=== PATIENT | male | born 1940 | race Caucasian/White ===

== ENCOUNTER 2016-02-24 09:41 | Inpatient (IN) | payer MEDICARE ==
[2016-02-24] VITALS (9 sets, daily range): BP systolic 124–230; BP diastolic 74–155; PULSE 77–101; RESP 15–21; TEMP 98.1; O2SAT 80–99
[~2016-02-24] VITALS: Ht 188 cm; Wt 111.9 kg
--- NOTE | 2016-02-24 09:54 | PD ---
HPI Chief Complaint: extremity injury Time Seen by Provider: 09:48 Travel History International Travel<30 days: No Contact w/Intl Traveler<30days: No Traveled to known affect area: No History of Present Illness HPI 75-year-old male was brought in by EMS for left leg injury. Patient resides at local assisted-living facility. Patient tripped and fell this morning. Patient denies loss of consciousness. Patient denies any headache or neck pain. Patient complains of mild pain on the left low leg. Patient denies any chest pain or shortness of breath. Patient denies abdominal pain. Patient denies any other injury. Patient has history hypertension. Patient has hearing impairment problem. PFSH Social History Tobacco Use: No Allergies-Medications (Allergen,Severity, Reaction): Coded Allergies: No Known Allergies (Unverified , 02/24/16) Reported Meds & Prescriptions Reported Meds & Active Scripts Active Percocet (Oxycodone-Acetaminophen) 5-325 mg Tab 1 Tab PO Q4H PRN Reported K-Tab (Potassium Chloride) 10 Meq Tab 8 Meq PO DAILY Citalopram (Citalopram Hydrobromide) 10 Mg Tab 20 Mg PO DAILY Review of Systems General / Constitutional: No: Fever Eyes: No: Visual changes HENT: No: Headaches Cardiovascular: No: Chest Pain or Discomfort Respiratory: No: Shortness of Breath Gastrointestinal: No: Abdominal Pain Genitourinary: No: Dysuria Musculoskeletal: Positive: Pain Skin: No Rash Neurologic: No: Weakness Psychiatric: No: Depression Endocrine: No: Polydipsia Hematologic/Lymphatic: No: Easy Bruising Physical Exam Narrative GENERAL: Well-nourished, well-developed patient. SKIN: Warm and dry. HEAD: Normocephalic. EYES: No scleral icterus. No injection or drainage. NECK: Supple, trachea midline. No JVD or lymphadenopathy. CARDIOVASCULAR: Regular rate and rhythm without murmurs, gallops, or rubs. RESPIRATORY: Breath sounds equal bilaterally. No accessory muscle use. GASTROINTESTINAL: Abdomen soft, non-tender, nondistended. MUSCULOSKELETAL: No cyanosis, or edema. BACK: Nontender without obvious deformity. No CVA tenderness. Patient has 1.5 cm laceration pretibial area left low leg minor bleeding noted. Soft tissue swelling noted left low leg. Sensory motor function distally intact. Good DP pulse. Data Data Last Documented VS Vital Signs Date Time Temp Pulse Resp B/P Pulse Ox O2 Delivery O2 Flow Rate FiO2 02/24/16 11:00 88 17 196/108 96 Room Air 02/24/16 09:52 98.1 Orders Electrocardiogram (02/24/16 09:49) Complete Blood Count With Diff (02/24/16 09:49) Comprehensive Metabolic Panel (02/24/16 09:49) Prothrombin Time / Inr (Pt) (02/24/16 09:49) Act Partial Throm Time (Ptt) (02/24/16 09:49) Chest, Single Ap (02/24/16 09:49) Iv Access Insert/Monitor (02/24/16 09:49) Ecg Monitoring (02/24/16 09:49) Oximetry (02/24/16 09:49) Type And Screen (02/24/16 09:49) Tibia/Fibula (Ap/Lat) (02/24/16 09:49) Sodium Chlor 0.9% 1000 Ml Inj (Ns 1000 M (02/24/16 10:00) Tetanus/Diphtheria Tox Adult (Tetanus/Di (02/24/16 10:00) Hydralazine Inj (Apresoline Inj) (02/24/16 10:00) Ct Tib/Fib W/O Iv Contrast (02/24/16 ) Ct Ankle W/O Contrast (02/24/16 ) Cefazolin 2 Gm Premix (Ancef 2 Gm Premix (02/24/16 11:30) Splint Or Brace Apply/Monitor (02/24/16 11:30) Nifedipine Sr (Procardia Xl) (02/24/16 11:45) Admit Order (Ed Use Only) (02/24/16 11:35) Labs Laboratory Tests Test 02/24/16 10:00 White Blood Count 13.2 TH/MM3 Red Blood Count 5.26 MIL/MM3 Hemoglobin 15.5 GM/DL Hematocrit 45.2 % Mean Corpuscular Volume 85.9 FL Mean Corpuscular Hemoglobin 29.5 PG Mean Corpuscular Hemoglobin 34.3 % Concent Red Cell Distribution Width 13.5 % Platelet Count 212 TH/MM3 Mean Platelet Volume 9.2 FL Neutrophils (%) (Auto) 84.0 % Lymphocytes (%) (Auto) 9.2 % Monocytes (%) (Auto) 4.6 % Eosinophils (%) (Auto) 1.6 % Basophils (%) (Auto) 0.6 % Neutrophils # (Auto) 11.1 TH/MM3 Lymphocytes # (Auto) 1.2 TH/MM3 Monocytes # (Auto) 0.6 TH/MM3 Eosinophils # (Auto) 0.2 TH/MM3 Basophils # (Auto) 0.1 TH/MM3 CBC Comment DIFF FINAL Differential Comment Prothrombin Time 10.5 SEC Prothromb Time International 1.0 RATIO Ratio Activated Partial 29.7 SEC Thromboplast Time Sodium Level 140 MEQ/L Potassium Level 3.5 MEQ/L Chloride Level 104 MEQ/L Carbon Dioxide Level 26.5 MEQ/L Anion Gap 10 MEQ/L Blood Urea Nitrogen 13 MG/DL Creatinine 1.14 MG/DL Estimat Glomerular Filtration 63 ML/MIN Rate Random Glucose 104 MG/DL Calcium Level 8.5 MG/DL Total Bilirubin 0.5 MG/DL Aspartate Amino Transf 21 U/L (AST/SGOT) Alanine Aminotransferase 23 U/L (ALT/SGPT) Alkaline Phosphatase 69 U/L Total Protein 8.1 GM/DL Albumin 3.5 GM/DL Blood Type O NEGATIVE Antibody Screen NEGATIVE Blood Bank Comment [facility] Medical Decision Making Medical Screen Exam Complete: Yes Emergency Medical Condition: Yes Differential Diagnosis Differential diagnosis including laceration, contusion, fracture, open fracture. Narrative Course 75 years old male with left low leg injury, laceration, soft tissue swelling. Patient has history hypertension. Patient's hypertensive this morning. Hydralazine 10 mg IV given. Betadine and dressing. Posterior long-leg splint. Ancef 2 g IV. I spoke with Dr. Chappell, orthopedist production laborer. Advised CT scan of the left tib-fib and ankle. Medical service to control blood pressure. Diagnosis Primary Impression: Fracture of tibia with fibula, left, open Qualified Code: S82.402B - Fracture of tibia with fibula, left, open, type I or II, initial encounter Additional Impression: Uncontrolled hypertension Admitting Information Admitting Physician Requests: Admit Scripts Lisinopril-Hctz 20-12.5 Mg Tab1 Tab PO DAILY #30 TAB Ref 0 Prov:Ofelia Patiño 02/25/16 Oxycodone-Acetaminophen (Percocet)5-325 mg Tab1 Tab PO Q4H PRN (PAIN) #90 TAB Ref 0 Prov:Kevin Chappell Jr., MD 02/24/16 Ralph Urena MD Feb 24, 2016 09:53
[2016-02-24] MEDS ORDERED: hydrALAZINE HCL 20 MG/ML VIAL IV PUSH ONE (10:00)
[2016-02-24] MEDS ORDERED: TETANUS/DIPHTHERIA TOXOID ADULT 0.5 ML VIAL IM ONE (10:00)
[2016-02-24] MEDS ORDERED: LISI10TA PO (10:06)
[2016-02-24] MEDS ORDERED: CITA10TA4 PO (10:06)
[2016-02-24] MEDS ORDERED: K-TA10TA PO (10:06)
[2016-02-24] MEDS: SODIUM CHLOR 0.9% 1000 ML INJ 1,000 ML IV SCH ×2 (10:08→20:00)
[2016-02-24 10:17] LABS: AUTOMATED NEUTROPHIL # 11.1 TH/MM3 (1.8-7.7); BASOPHIL # 0.1 TH/MM3 (0-0.2); BASOPHIL % 0.6 % (0.0-2.0); EOSINOPHIL # 0.2 TH/MM3 (0-0.4); EOSINOPHIL % 1.6 % (0.0-4.0); HEMATOCRIT 45.2 % (39.0-51.0); HEMO FLAGS DIFF FINAL; LYMPH % 9.2 % (9.0-44.0); LYMPHOCYTE # 1.2 TH/MM3 (1.0-4.8); MEAN CELL VOLUME 85.9 FL (80.0-100.0); MEAN CORPUSCULAR HEMOGLOBIN 29.5 PG (27.0-34.0); MEAN CORPUSCULAR HGB CONC 34.3 % (32.0-36.0); MONO % 4.6 % (0.0-8.0); PLATELET COUNT 212 TH/MM3 (150-450); RED BLOOD COUNT 5.26 MIL/MM3 (4.50-5.90); RED CELL DISTRIBUTION WIDTH 13.5 % (11.6-17.2); WHITE BLOOD COUNT 13.2 TH/MM3 (4.0-11.0)
[2016-02-24 10:28] LABS: APTT (PATIENT) 29.7 SEC (24.3-30.1); PROTHROMBIN TIME - PATIENT 10.5 SEC (9.8-11.6)
[2016-02-24 10:32] LABS: ANION GAP 10 MEQ/L (5-15); AST (GOT) 21 U/L (15-37); BICARBONATE 26.5 MEQ/L (21.0-32.0); BLOOD UREA NITROGEN 13 MG/DL (7-18); CHLORIDE 104 MEQ/L (98-107); GLOMERULAR FILTRATION RATE 63 ML/MIN (>89); POTASSIUM 3.5 MEQ/L (3.5-5.1); SODIUM (NA) 140 MEQ/L (136-145)
[2016-02-24 10:35] LABS: ALKALINE PHOSPHATASE 69 U/L (45-117); ALT (GPT) 23 U/L (12-78); TOTAL BILIRUBIN ADULT 0.5 MG/DL (0.2-1.0)
--- NOTE | 2016-02-24 10:39 | RADRPT ---
EXAM DATE/TIME: 02/24/2016 10:05 [facility] COMPARISON: No previous studies available for comparison. INDICATIONS : Short of breath. MEDICAL HISTORY : None. SURGICAL HISTORY : None. ENCOUNTER: Initial ACUITY: 1 day PAIN SCORE: 02/15 LOCATION: Bilateral chest FINDINGS: A single view of the chest demonstrates the lungs to be symmetrically aerated without evidence of mas s, infiltrate or effusion. There is hyperaeration of both lung greene. The cardiomediastinal contour s are unremarkable. Osseous structures are intact. There are degenerative changes of the thoracic sp ine. CONCLUSION: No acute intrathoracic disease. Abhijeet Ramsey MD on February 24, 2016 at 10:37 Board Certified Radiologist. This report was verified electronically.
--- NOTE | 2016-02-24 10:42 | RADRPT ---
EXAM DATE/TIME: 02/24/2016 10:10 [facility] COMPARISON: No previous studies available for comparison. INDICATIONS : Left lower leg pain. MEDICAL HISTORY : None. SURGICAL HISTORY : None. ENCOUNTER: Initial ACUITY: 1 day PAIN SCORE: 10/10 LOCATION: Left lower leg. FINDINGS: There are spiral mildly displaced fractures involving the midshaft of the fibula and the distal shaft of the tibia. There is also a spiral nondisplaced fracture involving the distal fibula as well as a nondisplaced fracture involving the medial malleolus. There is diffuse soft tissue swelling. No joint dislocation is seen at the knee or ankle. CONCLUSION: 1. Spiral fractures involving the midshaft of the fibula as well as the distal fibula at the lateral malleolus level. 2. Spiral fracture involving the distal shaft of the tibia and nondisplaced fracture of medial malleo holden. Abhijeet Ramsey MD on February 24, 2016 at 10:38 Board Certified Radiologist. This report was verified electronically.
[2016-02-24] MEDS ORDERED: ceFAZolin 2 GM PREMIX 50 ML IV ONE (11:30)
[2016-02-24] MEDS ORDERED: PROPOFOL 200 MG/20 ML AMP IV ONE (11:31)
[2016-02-24] MEDS ORDERED: ONDANSETRON HCL 4 MG/2 ML VIAL IV PUSH ONE ×2 (11:31→11:45)
[2016-02-24] MEDS ORDERED: LACTATED RINGER'S 1000 ML INJ 1,000 ML IV ONE (11:31)
[2016-02-24] MEDS: NIFEdipine 60 MG SUSTAINED RELEASE TAB PO SCH (11:45)
[2016-02-24] MEDS ORDERED: SODIUM CHLORIDE 0.9% FLUSH 5 ML FLUSH FLUSH PRN (11:45)
[2016-02-24] MEDS ORDERED: MORPHINE SULFATE 4 MG/ML INJ IV PUSH ONE (11:45)
[2016-02-24] MEDS ORDERED: HYDROmorphone HCL PF 1 MG/ML VIAL IV PUSH PRN (11:45)
[2016-02-24] MEDS ORDERED: ACETAMINOPHEN/HYDROcodone 325 MG/5 MG TAB PO PRN (11:45)
[2016-02-24] MEDS ORDERED: ONDANSETRON HCL 4 MG/2 ML VIAL IVP PRN (11:45)
[2016-02-24] MEDS ORDERED: NALOXONE HCL 0.4 MG/ML AMP IV PRN (11:45)
[2016-02-24] MEDS ORDERED: ACETAMINOPHEN 325 MG TAB PO PRN (11:45)
--- NOTE | 2016-02-24 13:55 | RADRPT ---
EXAM DATE/TIME: 02/24/2016 13:18 [facility] COMPARISON: No previous studies available for comparison. INDICATIONS: Fall, fracture. RADIATION DOSE: 28.08 CTDIvol (mGy) MEDICAL HISTORY: Cardiovascular disease. Hypertension. SURGICAL HISTORY: None. ENCOUNTER: Initial ACUITY: 1 day PAIN SCALE: 4/10 LOCATION: Left leg TECHNIQUE: Volumetric scanning of the tibia and fibula was performed. Using automated exposure control and adju stment of the mA and/or kV according to patient size, radiation dose was kept as low as reasonably ac hievable to obtain optimal diagnostic quality images. FINDINGS: There is a fracture to the mid shaft of the fibula and tibia. Additional areas of fracture of both t he medial and lateral malleolus. Tibial plateau is in anatomic alignment. CONCLUSION: Fractures as described above. This does not extend to the tibial plateau. Fractures do involve the tibial plafond. Nicholas Wynn MD FACR on February 24, 2016 at 13:43 Board Certified Radiologist. This report was verified electronically.
--- NOTE | 2016-02-24 13:57 | RADRPT ---
EXAM DATE/TIME: 02/24/2016 13:18 [facility] COMPARISON: No previous studies available for comparison. INDICATIONS: Fall, fracture. RADIATION DOSE: CTDIvol (mGy) ; Reconstructed from previous dataset MEDICAL HISTORY: Cardiovascular disease. Hypertension. SURGICAL HISTORY: None. ENCOUNTER: Initial ACUITY: 1 day PAIN SCALE: 4/10 LOCATION: Left leg TECHNIQUE: Volumetric scanning of the ankle was performed. Using automated exposure control and adjustment of t he mA and/or kV according to patient size, radiation dose was kept as low as reasonably achievable to obtain optimal diagnostic quality images. FINDINGS: There is a fracture of the medial and lateral malleolus. The talus and calcaneus are intact. Fractu re of the fibula include a vertical fracture of the posterior lip. CONCLUSION: 1. Trimalleolar fracture as described above. 2. Talus and calcaneus are intact. Nicholas Wynn MD FACR on February 24, 2016 at 13:44 Board Certified Radiologist. This report was verified electronically.
[2016-02-24] MEDS ORDERED: GENTAMICIN SULFATE 80 MG/2 ML VIAL ONE ×2 (16:27→16:30)
[2016-02-24] MEDS ORDERED: VANCOMYCIN HCL 1000 MG VIAL ONE (17:12)
[2016-02-24] MEDS ORDERED: SODIUM CHLOR 0.9% 250 ML INJ 250 ML ONE (17:13)
--- NOTE | 2016-02-24 18:16 | HHI.HP ---
HPI Service [facility] Primary Care Physician Non-Staff Admission Diagnosis open fracture left tib-fib. Uncontrolled hypertension. Chief Complaint: fall with fracture left tib-fib Travel History International Travel<30 Days: No Contact w/Intl Traveler <30 Da: No Traveled to Known Affected Are: No History of Present Illness 75 y/o male who tripped and fell today with left leg pain with history of hypertension going to or from er and not able at this time to give further history. Patient blood pressure was high given hydralazine with improvement. Review of Systems Musculoskeletal: COMPLAINS OF: Joint pain Past Family Social History Past Medical History hypertension Past Surgical History unknown Reported Medications lisinopril/hctz 10-12.5,citalopram,potassium Allergies: Coded Allergies: No Known Allergies (Unverified , 02/24/16) Social History NS,ND Physical Exam Vital Signs Vital Signs Date Time Temp Pulse Resp B/P Pulse Ox O2 Delivery O2 Flow Rate FiO2 02/24/16 15:00 100 20 124/74 93 Room Air 02/24/16 14:45 20 02/24/16 14:41 101 21 138/88 95 Room Air 02/24/16 13:00 100 17 176/81 94 Room Air 02/24/16 12:00 92 15 194/109 95 Room Air 02/24/16 11:00 88 17 196/108 96 Room Air 02/24/16 10:33 88 20 193/105 98 Room Air 02/24/16 09:55 79 17 230/122 80 Room Air 02/24/16 09:55 97 Room Air 02/24/16 09:52 97 Room Air 02/24/16 09:52 98.1 77 17 213/155 97 Physical Exam GENERAL: This is a well-nourished, well-developed patient, in no apparent distress. SKIN: No rashes, ecchymoses or lesions. Cool and dry. HEAD: Atraumatic. Normocephalic. No temporal or scalp tenderness. EYES: Pupils equal round and reactive. Extraocular motions intact. No scleral icterus. No injection or drainage. ENT: Nose without bleeding, purulent drainage or septal hematoma. Throat without erythema, tonsillar hypertrophy or exudate. Uvula midline. Airway patent. NECK: Trachea midline. No JVD or lymphadenopathy. Supple, nontender, no meningeal signs. CARDIOVASCULAR: Regular rate and rhythm without murmurs, gallops, or rubs. RESPIRATORY: Clear to auscultation. Breath sounds equal bilaterally. No wheezes , rales, or rhonchi. GASTROINTESTINAL: Abdomen soft, non-tender, nondistended. No hepato-splenomegaly , or palpable masses. No guarding. MUSCULOSKELETAL: Extremities with left leg pain on movement NEUROLOGICAL: Awake and alert. Cranial nerves II through XII intact. Motor and sensory grossly within normal limits. Five out of 5 muscle strength in all muscle groups. Normal speech. Laboratory Laboratory Tests Test 02/24/16 10:00 White Blood Count 13.2 Red Blood Count 5.26 Hemoglobin 15.5 Hematocrit 45.2 Mean Corpuscular Volume 85.9 Mean Corpuscular Hemoglobin 29.5 Mean Corpuscular Hemoglobin 34.3 Concent Red Cell Distribution Width 13.5 Platelet Count 212 Mean Platelet Volume 9.2 Neutrophils (%) (Auto) 84.0 Lymphocytes (%) (Auto) 9.2 Monocytes (%) (Auto) 4.6 Eosinophils (%) (Auto) 1.6 Basophils (%) (Auto) 0.6 Neutrophils # (Auto) 11.1 Lymphocytes # (Auto) 1.2 Monocytes # (Auto) 0.6 Eosinophils # (Auto) 0.2 Basophils # (Auto) 0.1 CBC Comment DIFF FINAL Differential Comment Prothrombin Time 10.5 Prothromb Time International 1.0 Ratio Activated Partial 29.7 Thromboplast Time Sodium Level 140 Potassium Level 3.5 Chloride Level 104 Carbon Dioxide Level 26.5 Anion Gap 10 Blood Urea Nitrogen 13 Creatinine 1.14 Estimat Glomerular Filtration 63 Rate Random Glucose 104 Calcium Level 8.5 Total Bilirubin 0.5 Aspartate Amino Transf 21 (AST/SGOT) Alanine Aminotransferase 23 (ALT/SGPT) Alkaline Phosphatase 69 Total Protein 8.1 Albumin 3.5 Blood Type O NEGATIVE Antibody Screen NEGATIVE Blood Bank Comment Result Diagram: 02/24/16 1000 02/24/16 1000 Imaging Last 24 hours Impressions Tibia/Fibula X-Ray 02/24/16 0949 Signed Impressions: Service Date/Time: Wednesday, February 24, 2016 10:10 - CONCLUSION: 1. Spiral fractures involving the midshaft of the fibula as well as the distal fibula at the lateral malleolus level. 2. Spiral fracture involving the distal shaft of the tibia and nondisplaced fracture of medial malleolus. Abhijeet J. Siragusa, MD Chest X-Ray 02/24/16 0949 Signed Impressions: Service Date/Time: Wednesday, February 24, 2016 10:05 - CONCLUSION: No acute intrathoracic disease. Abhijeet Ramsey MD Lower Extremity CT 02/24/16 0000 Signed Impressions: Service Date/Time: Wednesday, February 24, 2016 13:18 - CONCLUSION: 1. Trimalleolar fracture as described above. 2. Talus and calcaneus are intact. Nicholas Wynn MD FACR Lower Extremity CT 02/24/16 0000 Signed Impressions: Service Date/Time: Wednesday, February 24, 2016 13:18 - CONCLUSION: Fractures as described above. This does not extend to the tibial plateau. Fractures do involve the tibial plafond. Nicholas Wynn MD FACR Course in er given pain med and iv antibiotic and blood pressure med and sent to or Assessment and Plan Problem List: (1) Fracture of tibia with fibula, left, open Status: Acute Plan: patient to or (2) Uncontrolled hypertension Status: Acute Plan: patient can restart in am regular meds will use vasotec 1.25 q 6h IV for prn blood pressure elevation Assessment and Plan further plan as case develops Code Status full Discussed Condition With patient Physician Certification 2 Midnight Certification Type: Admission for Inpatient Services Order for Inpatient Services The services are ordered in accordance with Medicare regulations or non- Medicare payer requirements, as applicable. In the case of services not specified as inpatient-only, they are appropriately provided as inpatient services in accordance with the 2-midnight benchmark. Estimated LOS (days): 3 3 days is the estimated time the patient will need to remain in the hospital, assuming treatment plan goals are met and no additional complications. Post-Hospital Plan: SNF Problem Qualifiers (1) Fracture of tibia with fibula, left, open: Qualified Code: S82.402B - Fracture of tibia with fibula, left, open, type I or II, initial encounter Aguilar Kulkarni MD Feb 24, 2016 18:16
--- NOTE | 2016-02-24 19:34 | EKG ---
Date Performed: 02/24/2016 Time Performed: 10:05:46 PTAGE: 75 years EKG: Sinus rhythm WITH OCCASIONAL SUPRAVENTRICULAR PREMATURE COMPLEXES NONSPECIFIC T-WAVE ABNORMALITY BORDERLINE ECG NO PREVIOUS TRACING DOCTOR: Sunny Walker Interpretating Date/Time 02/24/2016 19:33:55
--- NOTE | 2016-02-24 19:42 | PD.CONS ---
cc: Kevin Chappell Jr., MD HPI Service [facility] Consult Requested By Primary Care Physician Non-Staff Admission Diagnosis open fracture left tib-fib. Uncontrolled hypertension. Diagnoses: (1) Fracture of tibia with fibula, left, open (2) Uncontrolled hypertension History of Present Illness 75-year-old male was brought in by EMS after a fall at his assisted-living facility. Patient denies loss of consciousness. Patient denies any headache or neck pain. Patient complains of mild pain on the left low leg. Patient denies any chest pain or shortness of breath. Patient denies abdominal pain. Patient denies any other injury. Patient has history hypertension. Patient has hearing impairment problem. Patient is extremely hard of hearing and is a poor historian. He reports mild paresthesia in the LEFT lower extremity, his pain is 4 out of 10, exacerbated by range of motion, relieved at rest and IV pain medicine, pain localized in the distal tibia area. Review of Systems Constitutional: DENIES: Diaphoretic episodes, Fatigue, Fever, Weight gain, Weight loss, Chills, Dizziness, Change in appetite, Night Sweats Endocrine: DENIES: Heat/cold intolerance, Polydipsia, Polyuria, Polyphagia Respiratory: DENIES: Apneas, Cough, Snoring, Wheezing, Hemoptysis, Sputum production, Shortness of breath Gastrointestinal: DENIES: Abdominal pain, Black stools, Bloody stools, Constipation, Diarrhea, Nausea, Vomiting, Difficulty Swallowing, Anorexia Genitourinary: DENIES: Sexual dysfunction, Urinary frequency, Urinary incontinence, Urgency, Hematuria, Dysuria, Nocturia, Penile Discharge, Testicular Pain, Testicular Swelling Integumentary: DENIES: Abnormal pigmentation, Nail changes, Pruritus, Rash Past Family Social History Past Medical History unobtainable Past Surgical History unobtainable Allergies: Coded Allergies: No Known Allergies (Unverified , 02/24/16) Active Ordered Medications Current Medications Medications (Trade) Dose Ordered Sig/Luis Route Start Time Stop Time Status Last Admin (NS 1000 ml Inj) 1,000 ml @ 100 mls/hr Q10H IV 02/24/16 10:00 02/24/16 10:08 (Procardia Xl) 60 mg DAILY PO 02/24/16 11:45 (NS Flush) 2 ml UNSCH PRN FLUSH 02/24/16 11:45 (NS Flush) 2 ml BID FLUSH 02/24/16 21:00 (Tylenol) 650 mg Q4H PRN PO 02/24/16 11:45 (Zofran Inj) 4 mg Q6H PRN IVP 02/24/16 11:45 (Milk Of Magnesia Liq) 30 ml Q12H PRN PO 02/24/16 11:45 (Narcan Inj) 0.4 mg UNSCH PRN IV 02/24/16 11:45 ([place] 5-325 Mg) 1 tab Q4H PRN PO 02/24/16 11:45 (Dilaudid Pf Inj) 1 mg Q4H PRN IV PUSH 02/24/16 11:45 Reported Meds & Active Scripts Active Reported K-Tab (Potassium Chloride) 10 Meq Tab Unknown Dose PO DAILY Lisinopril-Hctz 10-12.5 Mg Tab Unknown Dose PO DAILY Citalopram (Citalopram Hydrobromide) 10 Mg Tab Unknown Dose PO DAILY Family History noncontributory Social History denies alcohol and tobacco use. Physical Exam Vital Signs Vital Signs Date Time Temp Pulse Resp B/P Pulse Ox O2 Delivery O2 Flow Rate FiO2 02/24/16 15:00 100 20 124/74 93 Room Air 02/24/16 14:45 20 02/24/16 14:41 101 21 138/88 95 Room Air 02/24/16 13:00 100 17 176/81 94 Room Air 02/24/16 12:00 92 15 194/109 95 Room Air 02/24/16 11:00 88 17 196/108 96 Room Air 02/24/16 10:33 88 20 193/105 98 Room Air 02/24/16 09:55 79 17 230/122 80 Room Air 02/24/16 09:55 97 Room Air 02/24/16 09:52 97 Room Air 02/24/16 09:52 98.1 77 17 213/155 97 Physical Exam alert and awake and oriented. 3. No acute distress. Head and neck :Normocephalic atraumatic. Pulmonary. No respiratory efforts. abdomen. Soft. Bilateral upper extremity. Neurovascular intact. No deformities. Strong radial artery pulses. LEFT lower extremity in splint with obvious deformity. Serosanguineous drainage anterior aspect of the splint. Otherwise his splint is intact. Soft compartments. Toes warm and well perfused. able to wiggle his toes. Soft components. Negative Homans. Laboratory Laboratory Tests Test 02/24/16 10:00 White Blood Count 13.2 Red Blood Count 5.26 Hemoglobin 15.5 Hematocrit 45.2 Mean Corpuscular Volume 85.9 Mean Corpuscular Hemoglobin 29.5 Mean Corpuscular Hemoglobin 34.3 Concent Red Cell Distribution Width 13.5 Platelet Count 212 Mean Platelet Volume 9.2 Neutrophils (%) (Auto) 84.0 Lymphocytes (%) (Auto) 9.2 Monocytes (%) (Auto) 4.6 Eosinophils (%) (Auto) 1.6 Basophils (%) (Auto) 0.6 Neutrophils # (Auto) 11.1 Lymphocytes # (Auto) 1.2 Monocytes # (Auto) 0.6 Eosinophils # (Auto) 0.2 Basophils # (Auto) 0.1 CBC Comment DIFF FINAL Differential Comment Prothrombin Time 10.5 Prothromb Time International 1.0 Ratio Activated Partial 29.7 Thromboplast Time Sodium Level 140 Potassium Level 3.5 Chloride Level 104 Carbon Dioxide Level 26.5 Anion Gap 10 Blood Urea Nitrogen 13 Creatinine 1.14 Estimat Glomerular Filtration 63 Rate Random Glucose 104 Calcium Level 8.5 Total Bilirubin 0.5 Aspartate Amino Transf 21 (AST/SGOT) Alanine Aminotransferase 23 (ALT/SGPT) Alkaline Phosphatase 69 Total Protein 8.1 Albumin 3.5 Blood Type O NEGATIVE Antibody Screen NEGATIVE Blood Bank Comment Result Diagram: 02/24/16 1000 02/24/16 1000 Imaging Last 72 hours Impressions Tibia/Fibula X-Ray 02/24/16 0949 Signed Impressions: Service Date/Time: Wednesday, February 24, 2016 10:10 - CONCLUSION: 1. Spiral fractures involving the midshaft of the fibula as well as the distal fibula at the lateral malleolus level. 2. Spiral fracture involving the distal shaft of the tibia and nondisplaced fracture of medial malleolus. Abhijeet Ramsey MD Chest X-Ray 02/24/16 0921 Signed Impressions: Service Date/Time: Wednesday, February 24, 2016 10:05 - CONCLUSION: No acute intrathoracic disease. Abhijeet Ramsey MD Assessment & Plan Assessment and Plan 75-year-old status post ground-level fall with a left open tibia and fibula fracture as well as a displaced fracture of the posterior malleolus. I recommend irrigation debridement with possible intramedullary casandra fixation in addition to open reduction internal fixation of the left posterior malleolus. I discussed my treatment plans with the patient, as well as risks, benefits and alternatives of surgical Intervention versus nonoperative treatment. In this case, the risks of operative intervention involves bleeding, infection, risks of damage to neurovascular structures, the risk of needing further surgery, posttraumatic arthritis and the risks involved with complication from anesthesia. We will proceed with the above procedure. The patient accepts these risks; understands and agrees with my recommendations. I also discussed my proposed postoperative care and follow-up plan. All questions were answered. Plan for OR []. Nothing by mouth []. Patient consented. Thanks for the consult, thanks for allowing me to participate in this patient's medical care. Kevin Chappell Jr., MD Feb 24, 2016 19:42
[2016-02-24] MEDS ORDERED: PERC5TAB12 PO (19:51)
--- NOTE | 2016-02-24 19:51 | PD.OP ---
cc: Kevin Chappell Jr., MD Operative Report Date of Surgery: Feb 24, 2016 Preoperative Diagnosis: #1 left grade 1 open tibia fracture #2 left displaced posterior malleolus fracture Postoperative Diagnosis: Same Procedure: #1 open reduction internal fixation left posterior malleolus. #2 irrigation debridement left tibia #3 intramedullary casandra fixation left tibial shaft Anesthesia: Gen. Surgeon: Kevin Chappell Signal Maintenance Technician(s): ZULLY Carpio The surgical procedure was assisted by my Advanced Registered Nurse Practitioner. My NUTRITION TECH presence was necessary throughout this case for the manipulation and positioning of the surgical extremity. My NUTRITION TECH was assisting me throughout the duration of this procedure. The skill set of an Advance Registered Nurse Practitioner was medically necessary to complete this procedure. During the surgical case, the certified surgical assistant was working at the back table and the Advance Registered Nurse Practitioner was directly assisting me. Resident Surgeon: None Operation and Findings: The patient received intravenous. After the appropriate anesthesia was administered, the patient was prepped and draped in the supine position in the usual sterile fashion. Skin assessment showed a small anterior tibial wound. There was moderate swelling noted to the leg. Compartments were soft. Attention was first turned to the anterior tibial wound. The wound was extended for irrigation and debridement to the extent of soft tissue degloving and periosteal stripping. Next, the posterior malleolus was fixed. Small anterior and posterior incision were made at the distal tibia. Dissection was taken down bluntly to bone. A large periArticular clamp was used to compress the articular surface. A 4.0 Cannulated screw was used to fix the posterior malleolus with 1 lag screw from anterior to posterior. We made incision proximal to the patella. We carefully dissected down to the quadriceps tendon. An in-line longitudinal split to the quadriceps tendon was completed. The capsule of the knee was entered. We placed the smooth trocar within the knee joint down to the proximal tibia, protecting the patella and trochlea during the case. We then reduced the tibia fracture manually under fluoroscopic imaging. A ball- tipped guidewire was placed into the tibial shaft, passing the fracture site. This was placed down to the distal physeal line of the tibia. We then sequentially reamed the tibia to 1 mm larger than the implanted tibial nail. We obtained good cortical chatter. We measured the appropriate length for the tibial nail. We then passed the tibial nail into the medullary canal of the tibia. The nail was secured proximally with 2 Screw(s), using the associated jig as a guide. We used the perfect [place] technique to visualize the distal tibial screws. The nail was secured distally with 2 screw(s). We had good reduction of the fracture with acceptable alignment in the AP and lateral planes and to rotation. We thoroughly irrigated the incisions including a lavage of the arthrotomy site proximally. The quadriceps split was closed with a #1 Vicryl. The remaining incisions were closed with #2-0 Vicryl, followed by yasmani. A well-padded splint was placed. IMPLANTS USED Synthes tibal nail, size: 9 mm * 360 mm POSTP-OP PLAN OF ACTIVITY Antibiotics: Ancef, vancomycin - 48hrs Antiocoagulation: Lovenox Weight bearing status: NWB for 3 months PT/OT: Making progress with PT. Encourage at least 3 times a day Dressing: Do not remove splint Dispo: expected discharge 2-3 days. Kevin Chappell Jr., MD Feb 24, 2016 19:50
[2016-02-24] MEDS ORDERED: ZOLPIDEM TARTRATE 5 MG TAB PO PRN (20:00)
[2016-02-24] MEDS ORDERED: Post-op Orders (for Pharmacy) MISC XX ONE (20:00)
[2016-02-24] MEDS ORDERED: SODIUM CHLORIDE 0.9% FLUSH 5 ML FLUSH IVF PRN (20:00)
[2016-02-24] MEDS ORDERED: PROMETHAZINE HCL 25 MG TAB PO PRN (20:00)
[2016-02-24] MEDS ORDERED: MORPHINE SULFATE 8 MG/ML INJ IV PUSH PRN (20:00)
[2016-02-24] MEDS ORDERED: oxyCODONE/ACETAMINOPHEN 5 MG/325 MG TAB PO PRN ×2 (20:00)
[2016-02-24] MEDS: KETOROLAC TROMETHAMINE 30 MG/ML (IVP) VIAL IVP SCH (20:00)
--- NOTE | 2016-02-24 20:07 | RADRPT ---
EXAM DATE/TIME: 02/24/2016 18:10 [place] COMPARISON: No previous studies available for comparison. INDICATIONS : Left tib/fib ORIF. MEDICAL HISTORY : None. SURGICAL HISTORY : None. ENCOUNTER: Subsequent ACUITY: 1 day PAIN SCORE: Non-responsive. LOCATION: Left Tib/Fib CONCLUSION: Fluoroscopic images during placement of intra-medullary casandra and screws in the left tibia. Segundo Vuong MD on February 24, 2016 at 20:05 Board Certified Radiologist. This report was verified electronically.
[2016-02-24] MEDS ORDERED: *RESP: ALBUTEROL 2.5 MG/3 ML NEB (PRN) PERIprocedural Use ONLY NEB ONE (20:45)
[2016-02-24] MEDS ORDERED: MORPHINE SULFATE 4 MG/ML INJ ONE (20:46)
[2016-02-24] MEDS ORDERED: fentaNYL CITRATE 250 MCG/5 ML AMP ONE (20:46)
[2016-02-24] MEDS ORDERED: MIDAZOLAM HCL 2 MG/2 ML VIAL ONE (20:47)
[2016-02-24] MEDS ORDERED: *MEPERIDINE 25 MG INJ VIAL PERIprocedural Use ONLY ONE (20:57)
[2016-02-24] MEDS: SODIUM CHLORIDE 0.9% FLUSH 5 ML FLUSH IVF SCH (21:00)
[2016-02-24] MEDS: SODIUM CHLORIDE 0.9% FLUSH 5 ML FLUSH FLUSH SCH (21:00)
[2016-02-25] MEDS: SODIUM CHLOR 0.9% 1000 ML INJ 1,000 ML IV SCH ×2 (00:19→16:00)
[2016-02-25 00:20] VITALS: BP 126/62; PULSE 95; RESP 18; TEMP 97.2; O2SAT 96
[2016-02-25] MEDS: KETOROLAC TROMETHAMINE 30 MG/ML (IVP) VIAL IVP SCH ×4 (01:41→20:54)
[2016-02-25 04:48] VITALS: BP 125/70; PULSE 89; RESP 18; TEMP 96.9; O2SAT 100
[2016-02-25 05:19] LABS: AUTOMATED NEUTROPHIL # 13.2 TH/MM3 (1.8-7.7); BASOPHIL % 0.1 % (0.0-2.0); HEMATOCRIT 36.5 % (39.0-51.0); HEMO FLAGS DIFF FINAL; LYMPH % 5.1 % (9.0-44.0); LYMPHOCYTE # 0.7 TH/MM3 (1.0-4.8); MEAN CELL VOLUME 85.7 FL (80.0-100.0); MEAN CORPUSCULAR HEMOGLOBIN 28.9 PG (27.0-34.0); MEAN CORPUSCULAR HGB CONC 33.8 % (32.0-36.0); MONO % 4.8 % (0.0-8.0); PLATELET COUNT 192 TH/MM3 (150-450); RED BLOOD COUNT 4.26 MIL/MM3 (4.50-5.90); RED CELL DISTRIBUTION WIDTH 13.7 % (11.6-17.2); WHITE BLOOD COUNT 14.6 TH/MM3 (4.0-11.0)
[2016-02-25 05:34] LABS: BICARBONATE 26.2 MEQ/L (21.0-32.0); MAGNESIUM 2.1 MG/DL (1.5-2.5)
[2016-02-25] MEDS: VANCOMYCIN INJ 1,000 MG in SODIUM CHLOR 0.9% 250 ML INJ 250 ML IV SCH ×2 (06:23→17:05)
[2016-02-25 08:00] VITALS: BP 117/65; PULSE 89; RESP 18; TEMP 98; O2SAT 93
[2016-02-25] MEDS: SODIUM CHLORIDE 0.9% FLUSH 5 ML FLUSH IVF SCH ×2 (09:00→21:00)
[2016-02-25] MEDS: SODIUM CHLORIDE 0.9% FLUSH 5 ML FLUSH FLUSH SCH ×2 (09:00→20:54)
[2016-02-25] MEDS: NIFEdipine 60 MG SUSTAINED RELEASE TAB PO SCH (09:07)
[2016-02-25] MEDS: ENOXAPARIN SODIUM 30 MG/0.3 ML SYRINGE SQ SCH ×2 (09:07→20:54)
[2016-02-25 12:00] VITALS: BP 123/69; PULSE 95; RESP 18; TEMP 97.6; O2SAT 93
[2016-02-25] MEDS ORDERED: CLON0.1T PO (15:25)
[2016-02-25] MEDS ORDERED: LISI20TA PO (15:25)
--- NOTE | 2016-02-25 15:26 | HHI.PR ---
Subjective Remarks No complaints Pts pain is well controlled BP is stable off all home meds Objective Vitals Vital Signs Date Time Temp Pulse Resp B/P Pulse Ox O2 Delivery O2 Flow Rate FiO2 02/25/16 12:00 97.6 95 18 123/69 93 02/25/16 08:00 98.0 89 18 117/65 93 02/25/16 04:48 96.9 89 18 125/70 100 02/25/16 00:20 97.2 95 18 126/62 96 02/24/16 22:16 97.7 93 14 131/72 95 Nasal Cannula 3 02/24/16 22:00 91 14 126/77 94 Nasal Cannula 3 02/24/16 21:45 92 16 125/77 96 Nasal Cannula 3 02/24/16 21:30 92 15 129/81 95 Nasal Cannula 3 02/24/16 21:15 90 17 131/76 94 Nasal Cannula 3 02/24/16 21:00 91 14 126/77 98 Aerosol Mask 10 02/24/16 20:45 92 16 125/77 90 Nasal Cannula 3 02/24/16 20:33 98.8 94 19 162/84 92 Nasal Cannula 3 02/24/16 02/24/16 02/25/16 15:00 23:00 07:00 Intake Total 1300 ml 400 ml Output Total 700 ml 150 ml Balance -700 ml 1150 ml 400 ml IV Total 100 ml 400 ml Other 1200 ml Output Urine Total 700 ml 0 ml Estimated Blood Loss 150 ml Other 0 ml # Voids 1 Result Diagram: 02/25/16 0437 02/25/16 0437 Other Results Laboratory Tests Test 02/24/16 02/25/16 10:00 04:37 White Blood Count 13.2 TH/MM3 14.6 TH/MM3 Red Blood Count 5.26 MIL/MM3 4.26 MIL/MM3 Hemoglobin 15.5 GM/DL 12.3 GM/DL Hematocrit 45.2 % 36.5 % Mean Corpuscular Volume 85.9 FL 85.7 FL Mean Corpuscular Hemoglobin 29.5 PG 28.9 PG Mean Corpuscular Hemoglobin 34.3 % 33.8 % Concent Red Cell Distribution Width 13.5 % 13.7 % Platelet Count 212 TH/MM3 192 TH/MM3 Mean Platelet Volume 9.2 FL 9.4 FL Neutrophils (%) (Auto) 84.0 % 90.0 % Lymphocytes (%) (Auto) 9.2 % 5.1 % Monocytes (%) (Auto) 4.6 % 4.8 % Eosinophils (%) (Auto) 1.6 % 0.0 % Basophils (%) (Auto) 0.6 % 0.1 % Neutrophils # (Auto) 11.1 TH/MM3 13.2 TH/MM3 Lymphocytes # (Auto) 1.2 TH/MM3 0.7 TH/MM3 Monocytes # (Auto) 0.6 TH/MM3 0.7 TH/MM3 Eosinophils # (Auto) 0.2 TH/MM3 0.0 TH/MM3 Basophils # (Auto) 0.1 TH/MM3 0.0 TH/MM3 CBC Comment DIFF FINAL DIFF FINAL Differential Comment Prothrombin Time 10.5 SEC Prothromb Time International 1.0 RATIO Ratio Activated Partial 29.7 SEC Thromboplast Time Sodium Level 140 MEQ/L 143 MEQ/L Potassium Level 3.5 MEQ/L 4.0 MEQ/L Chloride Level 104 MEQ/L 108 MEQ/L Carbon Dioxide Level 26.5 MEQ/L 26.2 MEQ/L Anion Gap 10 MEQ/L 9 MEQ/L Blood Urea Nitrogen 13 MG/DL 16 MG/DL Creatinine 1.14 MG/DL 1.40 MG/DL Estimat Glomerular Filtration 63 ML/MIN 49 ML/MIN Rate Random Glucose 104 MG/DL 145 MG/DL Calcium Level 8.5 MG/DL 8.1 MG/DL Total Bilirubin 0.5 MG/DL Aspartate Amino Transf 21 U/L (AST/SGOT) Alanine Aminotransferase 23 U/L (ALT/SGPT) Alkaline Phosphatase 69 U/L Total Protein 8.1 GM/DL Albumin 3.5 GM/DL Blood Type O NEGATIVE Antibody Screen NEGATIVE Blood Bank Comment Magnesium Level 2.1 MG/DL Imaging Last 24 hours Impressions Tibia/Fibula X-Ray 02/24/16948 Signed Impressions: Service Date/Time: Wednesday, February 24, 2016 10:10 - CONCLUSION: 1. Spiral fractures involving the midshaft of the fibula as well as the distal fibula at the lateral malleolus level. 2. Spiral fracture involving the distal shaft of the tibia and nondisplaced fracture of medial malleolus. Abhijeet Ramsey MD Chest X-Ray 02/24/1666 Signed Impressions: Service Date/Time: Wednesday, February 24, 2016 10:05 - CONCLUSION: No acute intrathoracic disease. Abhijeet Ramsey MD Lower Extremity CT 02/24/16 0000 Signed Impressions: Service Date/Time: Wednesday, February 24, 2016 13:18 - CONCLUSION: 1. Trimalleolar fracture as described above. 2. Talus and calcaneus are intact. Nicholas Wynn MD FACR Lower Extremity CT 02/24/16 0000 Signed Impressions: Service Date/Time: Wednesday, February 24, 2016 13:18 - CONCLUSION: Fractures as described above. This does not extend to the tibial plateau. Fractures do involve the tibial plafond. Nicholas Wynn MD FACR Objective Remarks General: NAD, AAOx3 Chest: CTA bilaterally Cardiac: Regular Abd: +BS, soft ND/NT Ext: LLE splint in place and bandages are c/d/i A/P Problem List: (1) Fracture of tibia with fibula, left, open Status: Acute Plan: - Pt admitted after a trip and fall at home and sustained a mechanical Tib/Fib fracture of the LLE - Orthopedic surgery evaluated the pt and he underwent ORIF of the left posterior malleolus, I&D of the left tibia and intramedullary casandra fixation left tibial shaft on 02/24/[address] Chappell - Post-op pain control per Ortho - Pt is prescribed Vancomycin and Cefazolin IV x 2 days. - IS - PT daily - Constipation precautions. - DVT prophylaxis (2) Uncontrolled hypertension Status: Acute Plan: - Pts BP is stable today off home meds - Pt takes Lisinopril/HCTZ 20-12.5 once daily and Clonidine 0.1mg daily PRN elevated BP. - PRN BP control for now. Assessment and Plan Patient examined. Assessment and plan formulated with Ofelia Patiño PA-C. I agree with the above. Problem Qualifiers (1) Fracture of tibia with fibula, left, open: Qualified Code: S82.402B - Fracture of tibia with fibula, left, open, type I or II, initial encounter Ofelia Patiño Feb 25, 2016 15:26 Luis Cameron DO Mar 04, 2016 19:20
[2016-02-25 16:00] VITALS: BP 95/59; PULSE 85; RESP 18; TEMP 98; O2SAT 93
--- NOTE | 2016-02-25 16:52 | PD.ORT.PN ---
Subjective Subjective Remarks Pain controlled. doing well. no issues. Objective Vitals Vital Signs Date Time Temp Pulse Resp B/P Pulse Ox O2 Delivery O2 Flow Rate FiO2 02/25/16 12:00 97.6 95 18 123/69 93 02/25/16 08:00 98.0 89 18 117/65 93 02/25/16 04:48 96.9 89 18 125/70 100 02/25/16 00:20 97.2 95 18 126/62 96 02/24/16 22:16 97.7 93 14 131/72 95 Nasal Cannula 3 02/24/16 22:00 91 14 126/77 94 Nasal Cannula 3 02/24/16 21:45 92 16 125/77 96 Nasal Cannula 3 02/24/16 21:30 92 15 129/81 95 Nasal Cannula 3 02/24/16 21:15 90 17 131/76 94 Nasal Cannula 3 02/24/16 21:00 91 14 126/77 98 Aerosol Mask 10 02/24/16 20:45 92 16 125/77 90 Nasal Cannula 3 02/24/16 20:33 98.8 94 19 162/84 92 Nasal Cannula 3 I/O 02/24/16 02/24/16 02/24/16 02/25/16 02/25/16 02/25/16 07:00 15:00 23:00 07:00 15:00 23:00 Intake Total 1300 ml 400 ml 540 ml Output Total 700 ml 150 ml 350 ml Balance -700 ml 1150 ml 400 ml 190 ml Intake Oral 240 ml IV Total 100 ml 400 ml 300 ml Other 1200 ml Output Urine Total 700 ml 0 ml 350 ml Estimated Blood Loss 150 ml Other 0 ml # Voids 1 # Bowel Movements 0 Result Diagram: 02/25/167 02/25/16436 Objective Remarks Alert awake and oriented -3. No acute distress. Pulmonary: Normal respiratory effort. Left lower extremity: splint in place, Neurovascularly intact, +EHL/FHL, dressing clean, dry and intact. + PT/DP pulses. Supple compartments. Negative Homans sign. Assessment & Plan Assessment and Plan POD # 1 #1 open reduction internal fixation left posterior malleolus. #2 irrigation debridement left tibia #3 intramedullary casandra fixation left tibial shaft Doing well, expected postop pain, no complaints. Antibiotics: Ancef, vancomycin - dc tomorrow DVT prophylaxis, Lovenox Weightbearing status: NWB for 3 mo Dressing change: Do not remove splint Dispo: Stable per orthopedic standpoint. Likely dc to inpatient rehab Kevin Chappell Jr., MD Feb 25, 2016 16:52
[2016-02-25 20:00] VITALS: BP 99/52; PULSE 81; RESP 22; TEMP 98.6; O2SAT 93
[2016-02-25] MEDS: DOCUSATE SODIUM 100 MG CAP PO SCH (20:54)
[2016-02-25] MEDS: MULTIVITAMINS/MINERALS THERAPEUTIC TAB PO SCH (20:54)
[2016-02-26] VITALS (7 sets, daily range): BP systolic 96–123; BP diastolic 53–76; PULSE 77–92; RESP 17–22; TEMP 96.1–98.4; O2SAT 90–97
[2016-02-26] MEDS: SODIUM CHLOR 0.9% 1000 ML INJ 1,000 ML IV SCH ×3 (02:00→22:00)
[2016-02-26] MEDS: KETOROLAC TROMETHAMINE 30 MG/ML (IVP) VIAL IVP SCH ×3 (02:18→14:53)
[2016-02-26] MEDS: DOCUSATE SODIUM 100 MG CAP PO SCH ×2 (08:57→21:28)
[2016-02-26] MEDS: ENOXAPARIN SODIUM 30 MG/0.3 ML SYRINGE SQ SCH ×2 (08:57→21:28)
[2016-02-26] MEDS: NIFEdipine 60 MG SUSTAINED RELEASE TAB PO SCH (08:57)
[2016-02-26] MEDS: MULTIVITAMINS/MINERALS THERAPEUTIC TAB PO SCH ×2 (08:57→21:28)
[2016-02-26] MEDS: SODIUM CHLORIDE 0.9% FLUSH 5 ML FLUSH FLUSH SCH ×2 (08:58→21:29)
[2016-02-26] MEDS: SODIUM CHLORIDE 0.9% FLUSH 5 ML FLUSH IVF SCH ×2 (08:58→21:00)
[2016-02-26] MEDS: MAGNESIUM HYDROXIDE SUSP 30 ML CUP PO PRN (09:00)
--- NOTE | 2016-02-26 12:52 | PD.ORT.PN ---
Subjective Subjective Remarks no CP/SOB. no issues. Objective Vitals Vital Signs Date Time Temp Pulse Resp B/P Pulse Ox O2 Delivery O2 Flow Rate FiO2 02/26/16 08:00 98.4 78 18 116/76 94 02/26/16 04:00 97.0 81 22 123/66 93 02/26/16 00:00 97.8 82 22 96/55 93 02/25/16 20:00 98.6 81 22 99/52 93 02/25/16 16:00 98.0 85 18 95/59 93 I/O 02/25/16 02/25/16 02/25/16 02/26/16 02/26/16 02/26/16 07:00 15:00 23:00 07:00 15:00 23:00 Intake Total 400 ml 1740 ml 280 ml Output Total 350 ml 1000 ml Balance 400 ml 1390 ml -720 ml Intake Oral 1440 ml 280 ml IV Total 400 ml 300 ml Output Urine Total 350 ml 1000 ml # Voids 3 # Bowel Movements 0 Result Diagram: 02/25/1643602/25/16436 Objective Remarks Alert awake and oriented -3. No acute distress. Pulmonary: Normal respiratory effort. Left lower extremity: splint in place, Neurovascularly intact, +EHL/FHL, dressing clean, dry and intact. toes wwp, Supple compartments. Negative Homans sign. Assessment & Plan Assessment and Plan POD # 2 #1 open reduction internal fixation left posterior malleolus. #2 irrigation debridement left tibia #3 intramedullary casandra fixation left tibial shaft doing well. no complaints. Antibiotics: Ancef, vancomycin - dc today DVT prophylaxis, Lovenox Weightbearing status: NWB for 3 mo Dressing change: Do not remove splint Dispo: Likely dc to inpatient rehab this weekend ok to dc per ortho Kevin Chappell Jr., MD Feb 26, 2016 12:52
--- NOTE | 2016-02-26 17:44 | HHI.PR ---
Subjective Remarks No new complaints Afebrile NWB to LLE x 3 months per Ortho Objective Vitals Vital Signs Date Time Temp Pulse Resp B/P Pulse Ox O2 Delivery O2 Flow Rate FiO2 02/26/16 16:00 98.3 77 18 99/53 91 02/26/16 12:00 98.3 92 18 108/61 90 02/26/16 08:00 98.4 78 18 116/76 94 02/26/16 04:00 97.0 81 22 123/66 93 02/26/16 00:00 97.8 82 22 96/55 93 02/25/16 20:00 98.6 81 22 99/52 93 02/25/16 02/25/16 02/26/16 15:00 23:00 07:00 Intake Total 1740 ml 280 ml Output Total 350 ml 1000 ml Balance 1390 ml -720 ml Intake Oral 1440 ml 280 ml IV Total 300 ml Output Urine Total 350 ml 1000 ml # Voids 3 # Bowel Movements 0 Result Diagram: 02/25/16 0437 02/25/16 0437 Other Results Laboratory Tests Test 02/25/16 04:37 White Blood Count 14.6 TH/MM3 Red Blood Count 4.26 MIL/MM3 Hemoglobin 12.3 GM/DL Hematocrit 36.5 % Mean Corpuscular Volume 85.7 FL Mean Corpuscular Hemoglobin 28.9 PG Mean Corpuscular Hemoglobin 33.8 % Concent Red Cell Distribution Width 13.7 % Platelet Count 192 TH/MM3 Mean Platelet Volume 9.4 FL Neutrophils (%) (Auto) 90.0 % Lymphocytes (%) (Auto) 5.1 % Monocytes (%) (Auto) 4.8 % Eosinophils (%) (Auto) 0.0 % Basophils (%) (Auto) 0.1 % Neutrophils # (Auto) 13.2 TH/MM3 Lymphocytes # (Auto) 0.7 TH/MM3 Monocytes # (Auto) 0.7 TH/MM3 Eosinophils # (Auto) 0.0 TH/MM3 Basophils # (Auto) 0.0 TH/MM3 CBC Comment DIFF FINAL Differential Comment Sodium Level 143 MEQ/L Potassium Level 4.0 MEQ/L Chloride Level 108 MEQ/L Carbon Dioxide Level 26.2 MEQ/L Anion Gap 9 MEQ/L Blood Urea Nitrogen 16 MG/DL Creatinine 1.40 MG/DL Estimat Glomerular Filtration 49 ML/MIN Rate Random Glucose 145 MG/DL Calcium Level 8.1 MG/DL Magnesium Level 2.1 MG/DL Imaging Last 24 hours Impressions Tibia/Fibula X-Ray 02/24/16 0949 Signed Impressions: Service Date/Time: Wednesday, February 24, 2016 10:10 - CONCLUSION: 1. Spiral fractures involving the midshaft of the fibula as well as the distal fibula at the lateral malleolus level. 2. Spiral fracture involving the distal shaft of the tibia and nondisplaced fracture of medial malleolus. Abhijeet Ramsey MD Chest X-Ray 02/24/16 0949 Signed Impressions: Service Date/Time: Wednesday, February 24, 2016 10:05 - CONCLUSION: No acute intrathoracic disease. Abhijeet Ramsey MD Lower Extremity CT 02/24/16 0000 Signed Impressions: Service Date/Time: Wednesday, February 24, 2016 13:18 - CONCLUSION: 1. Trimalleolar fracture as described above. 2. Talus and calcaneus are intact. Nicholas Wynn MD FACR Lower Extremity CT 02/24/16 0000 Signed Impressions: Service Date/Time: Wednesday, February 24, 2016 13:18 - CONCLUSION: Fractures as described above. This does not extend to the tibial plateau. Fractures do involve the tibial plafond. Nicholas Wynn MD FACR Objective Remarks General: NAD, AAOx3 Chest: CTA bilaterally Cardiac: Regular Abd: +BS, soft ND/NT Ext: LLE splint in place and bandages are c/d/i A/P Problem List: (1) Fracture of tibia with fibula, left, open Status: Acute Plan: - Pt admitted after a trip and fall at home and sustained a mechanical Tib/Fib fracture of the LLE - Orthopedic surgery evaluated the pt and he underwent ORIF of the left posterior malleolus, I&D of the left tibia and intramedullary casandra fixation left tibial shaft on 02/24/[address] Chappell - Post-op pain control per Ortho - Pt is prescribed Vancomycin and Cefazolin IV x 2 days, to be completed today. - IS - PT daily - Constipation precautions. - DVT prophylaxis - Anticipate discharge to SNF tomorrow (2) Uncontrolled hypertension Status: Acute Plan: - Pts BP is stable today off home meds - Pt takes Lisinopril/HCTZ 20-12.5 once daily and Clonidine 0.1mg daily PRN elevated BP. - PRN BP control for now. Assessment and Plan Patient examined. Assessment and plan formulated with Ofelia Patiño PA-C. I agree with the above. Problem Qualifiers (1) Fracture of tibia with fibula, left, open: Qualified Code: S82.402B - Fracture of tibia with fibula, left, open, type I or II, initial encounter Ofelia Patiño Feb 26, 2016 17:44 Luis Cameron DO Mar 04, 2016 19:20
--- NOTE | 2016-02-27 07:01 | PD.ORT.PN ---
Subjective Subjective Remarks POD 3 s/p IMN left tibia and ORIF posterior mal asleep. difficult to arouse. resting comfortably Objective Vitals Vital Signs Date Time Temp Pulse Resp B/P Pulse Ox O2 Delivery O2 Flow Rate FiO2 02/26/16 23:45 97.2 79 19 107/53 94 02/26/16 19:00 96.1 81 17 111/63 97 02/26/16 16:00 98.3 77 18 99/53 91 02/26/16 12:00 98.3 92 18 108/61 90 02/26/16 08:00 98.4 78 18 116/76 94 I/O 02/26/16 02/26/16 02/26/16 02/27/16 02/27/16 02/27/16 07:00 15:00 23:00 07:00 15:00 23:00 Intake Total 280 ml 1200 ml 680 ml 480 ml Output Total 1000 ml 400 ml 1400 ml Balance -720 ml 1200 ml 280 ml -920 ml Intake Oral 280 ml 1200 ml 480 ml 480 ml IV Total 200 ml Output Urine Total 1000 ml 400 ml 1400 ml # Voids 3 # Bowel Movements 0 0 0 Result Diagram: 02/25/167 02/25/16436 Objective Remarks Alert awake and oriented -3. No acute distress. Pulmonary: Normal respiratory effort. Left lower extremity: splint in place, Neurovascularly intact, +EHL/FHL, dressing clean, dry and intact. toes wwp, Supple compartments. Negative Homans sign. Assessment & Plan Assessment and Plan POD # 3 #1 open reduction internal fixation left posterior malleolus. #2 irrigation debridement left tibia #3 intramedullary casandra fixation left tibial shaft doing well. no complaints. Antibiotics: Ancef, vancomycin - dc today DVT prophylaxis, Lovenox Weightbearing status: NWB for 3 mo Dressing change: Do not remove splint Dispo: Likely dc to inpatient rehab this weekend ok to dc per Cresencio Palmer Feb 27, 2016 07:01
[2016-02-27 07:06] LABS: BICARBONATE 29.1 MEQ/L (21.0-32.0); MAGNESIUM 2.4 MG/DL (1.5-2.5); POTASSIUM 3.6 MEQ/L (3.5-5.1)
[2016-02-27 07:10] VITALS: PULSE 91
[2016-02-27 07:16] LABS: AUTOMATED NEUTROPHIL # 6.8 TH/MM3 (1.8-7.7); BASOPHIL # 0.1 TH/MM3 (0-0.2); BASOPHIL % 0.5 % (0.0-2.0); EOSINOPHIL # 0.6 TH/MM3 (0-0.4); EOSINOPHIL % 5.4 % (0.0-4.0); HEMATOCRIT 36.9 % (39.0-51.0); HEMO FLAGS DIFF FINAL; LYMPH % 19.7 % (9.0-44.0); MEAN CELL VOLUME 86.3 FL (80.0-100.0); MEAN CORPUSCULAR HEMOGLOBIN 29.8 PG (27.0-34.0); MEAN CORPUSCULAR HGB CONC 34.6 % (32.0-36.0); MONO % 8.8 % (0.0-8.0); NEUT % 65.6 % (16.0-70.0); PLATELET COUNT 218 TH/MM3 (150-450); RED BLOOD COUNT 4.27 MIL/MM3 (4.50-5.90); RED CELL DISTRIBUTION WIDTH 13.7 % (11.6-17.2); WHITE BLOOD COUNT 10.4 TH/MM3 (4.0-11.0)
[2016-02-27 08:00] VITALS: BP 123/83; PULSE 98; RESP 19; TEMP 100.1; O2SAT 98
[2016-02-27] MEDS: SODIUM CHLOR 0.9% 1000 ML INJ 1,000 ML IV SCH ×2 (08:00→14:52)
[2016-02-27] MEDS: ENOXAPARIN SODIUM 30 MG/0.3 ML SYRINGE SQ SCH ×2 (08:18→20:52)
[2016-02-27] MEDS: NIFEdipine 60 MG SUSTAINED RELEASE TAB PO SCH (08:18)
[2016-02-27] MEDS: DOCUSATE SODIUM 100 MG CAP PO SCH ×2 (08:18→20:52)
[2016-02-27] MEDS: MULTIVITAMINS/MINERALS THERAPEUTIC TAB PO SCH ×2 (08:18→20:52)
[2016-02-27] MEDS: SODIUM CHLORIDE 0.9% FLUSH 5 ML FLUSH IVF SCH ×2 (08:19→20:52)
[2016-02-27] MEDS: SODIUM CHLORIDE 0.9% FLUSH 5 ML FLUSH FLUSH SCH ×2 (08:19→20:52)
[2016-02-27 12:00] VITALS: BP 152/82; PULSE 89; RESP 19; TEMP 100.2; O2SAT 94
[2016-02-27 16:00] VITALS: BP 142/68; PULSE 88; RESP 18; TEMP 98.8; O2SAT 93
[2016-02-27] MEDS ORDERED: ENOX30P SQ (18:24)
[2016-02-27] MEDS ORDERED: NIFE15TA PO (18:27)
--- NOTE | 2016-02-27 18:30 | HHI.DCPOC ---
Discharge Care Plan Diagnosis: (1) Fracture of tibia with fibula, left, open (2) Uncontrolled hypertension Goals to Promote Your Health * To prevent worsening of your condition and complications * To maintain your health at the optimal level Directions to Meet Your Goals Take your medications as prescribed Follow your dietary instruction Follow activity as directed Keep your appointments as scheduled Take your immunizations and boosters as scheduled If your symptoms worsen call your PCP, if no PCP go to Urgent Care Center or Emergency Room Smoking is Dangerous to Your Health. Avoid second hand smoke Call the 24-hour hour crisis hotline for domestic abuse at Luis Cameron DO Feb 27, 2016 18:30
--- NOTE | 2016-02-27 18:30 | HHI.DS ---
Discharge Summary Admission Date Feb 24, 2016 at 11:36 Discharge Date: Feb 27, 2016 Admitting Diagnosis open fracture left tib-fib. Uncontrolled hypertension. (1) Fracture of tibia with fibula, left, open (2) Uncontrolled hypertension Consultants Dr. Chappell, Orthopedic Surgeon Procedures I&D of the left tibia and intramedullary casandra fixation left tibial shaft on with Dr. Chappell Brief History 75 y/o male who tripped and fell today with left leg pain with history of hypertension going to or from er and not able at this time to give further history. Patient blood pressure was high given hydralazine with improvement. CBC/BMP: 02/27/16 0544 02/27/16 0544 Significant Findings Laboratory Tests Test 02/25/16 02/27/16 04:37 05:44 White Blood Count 14.6 TH/MM3 (4.0-11.0) Red Blood Count 4.26 MIL/MM3 4.27 MIL/MM3 (4.50-5.90) (4.50-5.90) Hemoglobin 12.3 GM/DL 12.7 GM/DL (13.0-17.0) (13.0-17.0) Hematocrit 36.5 % 36.9 % (39.0-51.0) (39.0-51.0) Neutrophils (%) (Auto) 90.0 % (16.0-70.0) Lymphocytes (%) (Auto) 5.1 % (9.0-44.0) Neutrophils # (Auto) 13.2 TH/MM3 (1.8-7.7) Lymphocytes # (Auto) 0.7 TH/MM3 (1.0-4.8) Chloride Level 108 MEQ/L (98-107) Creatinine 1.40 MG/DL (0.60-1.30) Estimat Glomerular Filtration 49 ML/MIN (>89) 81 ML/MIN (>89) Rate Random Glucose 145 MG/DL (74-106) Calcium Level 8.1 MG/DL 8.2 MG/DL (8.5-10.1) (8.5-10.1) Monocytes (%) (Auto) 8.8 % (0.0-8.0) Eosinophils (%) (Auto) 5.4 % (0.0-4.0) Eosinophils # (Auto) 0.6 TH/MM3 (0-0.4) Imaging Last Impressions Tibia/Fibula X-Ray 02/24/16 0949 Signed Impressions: Service Date/Time: Wednesday, February 24, 2016 10:10 - CONCLUSION: 1. Spiral fractures involving the midshaft of the fibula as well as the distal fibula at the lateral malleolus level. 2. Spiral fracture involving the distal shaft of the tibia and nondisplaced fracture of medial malleolus. Abhijeet Ramsey MD Chest X-Ray 02/24/16 0949 Signed Impressions: Service Date/Time: Wednesday, February 24, 2016 10:05 - CONCLUSION: No acute intrathoracic disease. Abhijeet Ramsey MD Lower Extremity CT 02/24/16 0000 Signed Impressions: Service Date/Time: Wednesday, February 24, 2016 13:18 - CONCLUSION: 1. Trimalleolar fracture as described above. 2. Talus and calcaneus are intact. Nicholas Wynn MD FACR PE at Discharge General: NAD, AAOx3 Chest: CTA bilaterally Cardiac: Regular Abd: +BS, soft ND/NT Ext: LLE splint in place and bandages are c/d/i Hospital Course (1) Fracture of tibia with fibula, left, open Status: Acute Plan: - Pt admitted after a trip and fall at home and sustained a mechanical Tib/Fib fracture of the LLE - Orthopedic surgery evaluated the pt and he underwent ORIF of the left posterior malleolus, I&D of the left tibia and intramedullary casandra fixation left tibial shaft on 02/24/[address] Chappell - percocet prn - Pt is prescribed Vancomycin and Cefazolin IV x 2 days, completed - IS - PT daily - Constipation precautions. - DVT prophylaxis - discharge to SNF (2) Uncontrolled hypertension Status: Acute Plan: - BP medication changed to procardia xl Pt Condition on Discharge: Stable Discharge Disposition: Discharge to SNF Discharge Instructions DIET: Follow Instructions for: Heart Healthy Diet Activities you can perform: Regular-No Restrictions Follow up Referrals: Orthopedics - 2 Weeks [facility] with Kevin Chappell Jr., MD New Medications: Oxycodone-Acetaminophen (Percocet) 5-325 mg Tab 1 TAB PO Q4H PRN PAIN #90 Ref 0 TAB Enoxaparin Inj (Lovenox Inj) 30 Mg/0.3 Ml Syr 30 MG SQ Q12H orthopedic surgery Days 20 INJECTION Nifedipine ER 24 HR (Nifedical XL) 60 Mg Tab 60 MG PO DAILY HTN #30 Ref 0 TAB Continued Medications: Citalopram (Citalopram) 10 Mg Tab 20 MG PO DAILY Control Depression #30 Ref 0 TAB Discontinued Medications: Clonidine (Clonidine) 0.1 Mg Tab 0.1 MG PO DAILY PRN elevated bp Ref 0 TAB Lisinopril-Hctz (Lisinopril-Hctz) 20-12.5 Mg Tab 1 TAB PO DAILY Blood Pressure Management #30 Ref 0 TAB Potassium Chloride ER (K-Tab) 10 Meq Tab 8 MEQ PO DAILY Electrolyte Replacement #60 Ref 0 TAB Additional Information Patient examined. Assessment and plan formulated with Ofelia Patiño PA-C. I agree with the above. Luis Cameron DO Feb 27, 2016 18:30
--- NOTE | 2016-02-27 18:32 | HHI.DCPOC ---
Discharge Care Plan Diagnosis: (1) Fracture of tibia with fibula, left, open (2) Uncontrolled hypertension Goals to Promote Your Health * To prevent worsening of your condition and complications * To maintain your health at the optimal level Directions to Meet Your Goals Take your medications as prescribed Follow your dietary instruction Follow activity as directed Keep your appointments as scheduled Take your immunizations and boosters as scheduled If your symptoms worsen call your PCP, if no PCP go to Urgent Care Center or Emergency Room Smoking is Dangerous to Your Health. Avoid second hand smoke Call the 24-hour hour crisis hotline for domestic abuse at Luis Cameron DO Feb 27, 2016 18:32
[2016-02-27 20:00] VITALS: BP 133/73; PULSE 77; RESP 16; TEMP 98.6; O2SAT 96
[2016-02-28] VITALS: BP 128/76; PULSE 81; RESP 16; TEMP 97.9; O2SAT 95
[2016-02-28] MEDS: SODIUM CHLOR 0.9% 1000 ML INJ 1,000 ML IV SCH ×2 (03:41→14:00)
[2016-02-28] MEDS: MAGNESIUM HYDROXIDE SUSP 30 ML CUP PO PRN ×3 (05:35→21:57)
--- NOTE | 2016-02-28 07:02 | PD.ORT.PN ---
Subjective Subjective Remarks Doing well. No new complaints Objective Vitals Vital Signs Date Time Temp Pulse Resp B/P Pulse Ox O2 Delivery O2 Flow Rate FiO2 02/28/16 00:00 97.9 81 16 128/76 95 02/27/16 20:00 98.6 77 16 133/73 96 02/27/16 16:00 98.8 88 18 142/68 93 02/27/16 12:00 100.2 89 19 152/82 94 02/27/16 08:00 100.1 98 19 123/83 98 02/27/16 07:10 91 I/O 02/27/16 02/27/16 02/27/16 02/28/16 02/28/16 02/28/16 07:00 15:00 23:00 07:00 15:00 23:00 Intake Total 480 ml 960 ml 240 ml 240 ml Output Total 1400 ml 300 ml 400 ml Balance -920 ml 960 ml -60 ml -160 ml Intake Oral 480 ml 960 ml 240 ml 240 ml Output Urine Total 1400 ml 300 ml 400 ml # Voids 4 # Bowel Movements 0 0 Result Diagram: 02/27/16 0544 02/27/16 0544 Objective Remarks Alert awake and oriented -3. No acute distress. Pulmonary: Normal respiratory effort. Left lower extremity: splint in place, Neurovascularly intact, +EHL/FHL, dressing clean, dry and intact. toes wwp, Supple compartments. Negative Homans sign. Assessment & Plan Assessment and Plan POD # 4 #1 open reduction internal fixation left posterior malleolus. #2 irrigation debridement left tibia #3 intramedullary casandra fixation left tibial shaft doing well. no complaints. Antibiotics: Ancef, vancomycin - dc today DVT prophylaxis, Lovenox Weightbearing status: NWB for 3 mo Dressing change: Do not remove splint Dispo: Likely dc to inpatient rehab this weekend ok to dc per ortho RORY WHITAKER PA-C Feb 28, 2016 07:02
[2016-02-28 08:00] VITALS: BP 145/74; PULSE 88; RESP 18; TEMP 99.3; O2SAT 94
[2016-02-28] MEDS: SODIUM CHLORIDE 0.9% FLUSH 5 ML FLUSH IVF SCH ×2 (09:00→21:00)
[2016-02-28] MEDS: SODIUM CHLORIDE 0.9% FLUSH 5 ML FLUSH FLUSH SCH ×2 (09:00→21:00)
[2016-02-28] MEDS: MULTIVITAMINS/MINERALS THERAPEUTIC TAB PO SCH ×2 (11:03→21:57)
[2016-02-28] MEDS: ENOXAPARIN SODIUM 30 MG/0.3 ML SYRINGE SQ SCH ×2 (11:03→21:57)
[2016-02-28] MEDS: NIFEdipine 60 MG SUSTAINED RELEASE TAB PO SCH (11:03)
[2016-02-28] MEDS: DOCUSATE SODIUM 100 MG CAP PO SCH ×2 (11:03→21:57)
[2016-02-28 12:00] VITALS: BP 160/72; PULSE 85; RESP 18; TEMP 98.8; O2SAT 99
[2016-02-28 16:00] VITALS: BP 118/61; PULSE 98; RESP 18; TEMP 100.1; O2SAT 92
[2016-02-28] MEDS: BISACODYL 10 MG SUPP PR PRN (17:50)
[2016-02-28 19:00] VITALS: BP 119/65; PULSE 90; RESP 22; TEMP 99.8; O2SAT 92
[2016-02-28 20:00] VITALS: BP 119/65; PULSE 90; RESP 22; TEMP 99.8; O2SAT 92
[2016-02-29 00:40] VITALS: BP 103/59; PULSE 92; RESP 20; TEMP 100.3; O2SAT 92
[2016-02-29 04:00] VITALS: BP 106/61; PULSE 90; RESP 18; TEMP 99.3; O2SAT 91
[2016-02-29 08:00] VITALS: BP 111/64; PULSE 92; RESP 18; TEMP 99.5; O2SAT 99
[2016-02-29] MEDS: SODIUM CHLORIDE 0.9% FLUSH 5 ML FLUSH IVF SCH (09:00)
[2016-02-29] MEDS: SODIUM CHLORIDE 0.9% FLUSH 5 ML FLUSH FLUSH SCH (09:00)
[2016-02-29] MEDS: NIFEdipine 60 MG SUSTAINED RELEASE TAB PO SCH (09:00)
[2016-02-29] MEDS: SODIUM CHLOR 0.9% 1000 ML INJ 1,000 ML IV SCH ×2 (10:00)
[2016-02-29] MEDS: MULTIVITAMINS/MINERALS THERAPEUTIC TAB PO SCH (10:08)
[2016-02-29] MEDS: BISACODYL 10 MG SUPP PR PRN (10:08)
[2016-02-29] MEDS: DOCUSATE SODIUM 100 MG CAP PO SCH (10:08)
[2016-02-29] MEDS: MAGNESIUM HYDROXIDE SUSP 30 ML CUP PO PRN (10:08)
[2016-02-29] MEDS: ENOXAPARIN SODIUM 30 MG/0.3 ML SYRINGE SQ SCH (10:09)
[2016-02-29 12:00] VITALS: BP 136/71; PULSE 94; RESP 18; TEMP 99.1; O2SAT 95
--- NOTE | 2016-02-29 12:25 | HHI.PR ---
Subjective Remarks Pt still without a BM and discharge has been held for this. Pt received MOM, Colace, Dulcolax this morning. Pt had a very low grade temp early this morning, likely secondary to atelectasis Objective Vitals Vital Signs Date Time Temp Pulse Resp B/P Pulse Ox O2 Delivery O2 Flow Rate FiO2 02/29/16 08:00 99.5 92 18 111/64 99 02/29/16 04:00 99.3 90 18 106/61 91 02/29/16 00:40 100.3 92 20 103/59 92 02/28/16 20:00 99.8 90 22 119/65 92 02/28/16 19:00 99.8 90 22 119/65 92 02/28/16 16:00 100.1 98 18 118/61 92 02/28/16 02/28/16 02/29/16 15:00 23:00 07:00 Intake Total 1200 ml 480 ml 260 ml Output Total 1600 ml 900 ml Balance 1200 ml -1120 ml -640 ml Intake Oral 1200 ml 480 ml 260 ml Output Urine Total 1600 ml 900 ml # Voids 4 # Bowel Movements 0 0 0 Result Diagram: 02/27/16 0544 02/27/16 0544 Imaging Last 24 hours Impressions Tibia/Fibula X-Ray 02/24/1649 Signed Impressions: Service Date/Time: Wednesday, February 24, 2016 10:10 - CONCLUSION: 1. Spiral fractures involving the midshaft of the fibula as well as the distal fibula at the lateral malleolus level. 2. Spiral fracture involving the distal shaft of the tibia and nondisplaced fracture of medial malleolus. Abhijeet Ramsey MD Chest X-Ray 02/24/1649 Signed Impressions: Service Date/Time: Wednesday, February 24, 2016 10:05 - CONCLUSION: No acute intrathoracic disease. Abhijeet Ramsey MD Lower Extremity CT 02/24/16 0000 Signed Impressions: Service Date/Time: Wednesday, February 24, 2016 13:18 - CONCLUSION: 1. Trimalleolar fracture as described above. 2. Talus and calcaneus are intact. Nicholas Wynn MD FACR Lower Extremity CT 02/24/16 0000 Signed Impressions: Service Date/Time: Wednesday, February 24, 2016 13:18 - CONCLUSION: Fractures as described above. This does not extend to the tibial plateau. Fractures do involve the tibial plafond. Nicholas Wynn MD FACR Objective Remarks General: NAD, AAOx3 Chest: CTA bilaterally Cardiac: Regular Abd: +BS, soft ND/NT Ext: LLE splint in place and bandages are c/d/i Procedures I&D of the left tibia and intramedullary casandra fixation left tibial shaft on with Dr. Chappell A/P Problem List: (1) Fracture of tibia with fibula, left, open Status: Acute Plan: - Pt admitted after a trip and fall at home and sustained a mechanical Tib/Fib fracture of the LLE - Orthopedic surgery evaluated the pt and he underwent ORIF of the left posterior malleolus, I&D of the left tibia and intramedullary casandra fixation left tibial shaft on 02/24/[address] Chappell - Post-op pain control per Ortho - Pt is prescribed Vancomycin and Cefazolin IV x 2 days completed on 02/26. - IS - PT daily - Constipation precautions. - Pt planned for discharge to SNF once he has a BM today (2) Uncontrolled hypertension Status: Acute Plan: - Pts had been taking Lisinopril/HCTZ 20-12.5 once daily and Clonidine 0.1mg daily PRN elevated BP at home - BP meds changed to Procardia XL 60mg po daily during this admission. - BP currently low-normal. Assessment and Plan Patient examined. Assessment and plan formulated with Ofelia Patiño PA-C. I agree with the above. Pt held last night until bm. now going to snf per Dr Cameron orders. Problem Qualifiers (1) Fracture of tibia with fibula, left, open: Qualified Code: S82.402B - Fracture of tibia with fibula, left, open, type I or II, initial encounter Ofelia Patiño Feb 29, 2016 12:25 Joe Silver MD Feb 29, 2016 21:09
[2016-02-29 16:00] VITALS: BP 127/75; PULSE 100; RESP 18; TEMP 99.1; O2SAT 93
== END 2016-02-29 16:59 | DRG 493 ==
LOC: NEPA 09:41 → NEDA 11:36 → N06B 22:38
PROVIDERS: ADMIT Hospitalist; ATTEND Hospitalist
PROC: 0QSK04Z Reposition Left Fibula with Internal Fixation Device, Open Approach (ICD-10-PCS; 2016-02-24)
PROC: 0QSH06Z Reposition Left Tibia with Intramedullary Internal Fixation Device, Open Approach (ICD-10-PCS; principal; 2016-02-24 17:15)
DX: S82.242B Displaced spiral fracture of shaft of left tibia, initial encounter for open fracture type I or II (principal); J98.11 Atelectasis; S82.44 Spiral fracture of shaft of fibula; S82.62XA Displaced fracture of lateral malleolus of left fibula, initial encounter for closed fracture; I10 Essential (primary) hypertension; H91.90 Unspecified hearing loss, unspecified ear; W01.0XXA Fall on same level from slipping, tripping and stumbling without subsequent striking against object, initial encounter; Y92.199 Unspecified place in other specified residential institution as the place of occurrence of the external cause
CPT/HCPCS: 71010; 73590; 73700; 76000; 80048; 80053; 83735; 85025; 85610; 85730; 86850; 86900; 86901; 90471; 90714; 93005; 94150; 94664; 96361; 96374; C1713; J0360; J0690; J1580; J1650; J1885; J2175; J2250; J2270; J2405; J3010; J3370; J7030; J7050; J7120; J7613

== ENCOUNTER 2016-07-13 11:47 | Inpatient (IN) | payer MEDICARE ==
[~2016-07-13] VITALS: Ht 188 cm; Wt 101.0 kg
[~2016-07-13 11:47] MED LIST: CITA10TA4 PO; ENOX30P SQ; NIFE15TA PO; PERC5TAB12 PO
[2016-07-13] MEDS ORDERED: SODIUM CHLORIDE 0.9% FLUSH 10 ML FLUSH IV FLUSH PRN (14:15)
[2016-07-13] MEDS ORDERED: MORPHINE SULFATE 8 MG/ML INJ IV PUSH PRN (14:15)
[2016-07-13] MEDS ORDERED: diphenhydrAMINE HCL 50 MG/ML VIAL IV PRN (14:15)
[2016-07-13] MEDS ORDERED: ONDANSETRON HCL 4 MG/2 ML VIAL IVP PRN (14:15)
[2016-07-13] MEDS ORDERED: NALOXONE HCL 0.4 MG/ML AMP IV PRN (14:15)
[2016-07-13] MEDS ORDERED: ACETAMINOPHEN 325 MG TAB PO PRN (14:15)
[2016-07-13] MEDS ORDERED: diphenhydrAMINE HCL 25 MG CAP PO PRN (14:15)
[2016-07-13] MEDS ORDERED: MAGNESIUM HYDROXIDE SUSP 30 ML CUP PO PRN (14:15)
[2016-07-13] MEDS ORDERED: ACETAMINOPHEN/HYDROcodone 325 MG/5 MG TAB PO PRN (14:15)
[2016-07-13] MEDS ORDERED: ZOLPIDEM TARTRATE 5 MG TAB PO PRN (14:15)
--- NOTE | 2016-07-13 15:17 | PD.CONS ---
HPI Service [facility] Hospitalists Consult Requested By Dr. Piyush Chappell Reason for Consult Medical Management Primary Care Physician Dr. Kyle Diagnoses: History of Present Illness Mr. Madrigal is a pleasant 76 y/o male with HTN and depression who was previously admitted to [facility] from 02/24/16 to 02/29/16 after a trip and fall at home and sustained a mechanical Tib/Fib fracture of the LLE. He underwent ORIF of the left posterior malleolus, I&D of the left tibia and intramedullary casandra fixation left tibial shaft on 02/24/[address] Chappell. Pt was given Vancomycin and Cefazolin IV x 2 days completed on 02/26. Pt had issues with cellulitis and poor wound healing in the LLE following discharge. He was being followed by [facility]/ wound care as an outpt. He was recently treated with Bactrim DS as an outpt as well without much improvement. Pt was admitted to [facility] on 07/13/[address] Chappell for removal of left tibial hardware. Pt noted to have hardware eroding through the medial aspect of the left ankle on examination today. He is planned for surgical intervention tomorrow morning. Review of Systems Constitutional: DENIES: Fever, Chills Ears, nose, mouth, throat: COMPLAINS OF: Hearing loss (chronic [place]) Respiratory: DENIES: Cough, Shortness of breath Cardiovascular: DENIES: Chest pain, Dyspnea on Exertion Gastrointestinal: DENIES: Abdominal pain, Nausea, Vomiting Genitourinary: DENIES: Hematuria, Dysuria Musculoskeletal: DENIES: Back pain Integumentary: DENIES: Rash Neurologic: DENIES: Headache Other See HPI Past Family Social History Past Medical History HTN Depression Past Surgical History ORIF of the left posterior malleolus, I&D of the left tibia and intramedullary casandra fixation left tibial shaft on 02/24/[address] Chappell Reported Medications Nifedical XL 60 Mg PO DAILY Percocet 5-325 mg 1 Tab PO Q4H PRN Citalopram 20 Mg PO DAILY Allergies: Coded Allergies: No Known Allergies (Unverified , 02/24/16) Family History Noncontributory Social History Denies any alcohol, tobacco or illicit drug use Physical Exam Physical Exam GENERAL: This is a well-nourished, well-developed patient, in no apparent distress. HEENT: Atraumatic. Normocephalic. No temporal or scalp tenderness. No scleral icterus. Airway patent. NECK: Trachea midline, supple, nontender. CARDIO: Regular. RESP: CTA bilaterally. No wheezes, rales, or rhonchi. ABD: +BS, soft, non-tender, nondistended. EXT: Left ankle with hardware protruding from medial side with some erythema of surrounding tissue NEURO: Awake and alert. Motor and sensory grossly within normal limits. Normal speech. Assessment and Plan Problem List: (1) Fixation hardware in lower extremity Status: Acute Plan: - Pt is a 76 y/o with HTN who previously was admitted in February 2016 after a trip and fall at home and sustained a mechanical Tib/Fib fracture of the LLE. He underwent ORIF of the left posterior malleolus, I&D of the left tibia and intramedullary casandra fixation left tibial shaft on 02/[address] Chappell. - Pt has had issues with cellulitis and poor wound healing in the LLE. - He was being followed by [facility]/wound care as an outpt. He was recently treated with Bactrim DS as an outpt as well without much improvement. - Pt was admitted to [facility] on 07/13/[address] Chappell for removal of left tibial hardware. - Pt noted to have hardware eroding through the medial aspect of the left ankle on examination today. - He is planned for surgical intervention tomorrow morning. - He has Cefazolin ordered by Ortho - Pain control PRN - NPO after MN except meds - Supportive care (2) HTN (hypertension) Status: Acute Plan: - Home meds resumed - Monitor Assessment and Plan Patient examined. Assessment and plan formulated with Ofelia Patiño PA-C. I agree with the above. Ofelia Patiño Jul 13, 2016 15:17 Luis Cameron DO Jul 13, 2016 22:41
[2016-07-13 16:00] VITALS: BP 147/78; PULSE 79; RESP 17; TEMP 97.4; O2SAT 98
[2016-07-13 20:00] VITALS: BP 176/92; PULSE 89; RESP 20; TEMP 96.8; O2SAT 97
[2016-07-13] MEDS: SODIUM CHLORIDE 0.9% FLUSH 10 ML FLUSH IV FLUSH SCH (20:23)
[2016-07-13] MEDS: DOCUSATE SODIUM 100 MG CAP PO SCH (20:23)
[2016-07-13] MEDS: ceFAZolin 2 GM PREMIX 50 ML IV SCH (21:47)
[2016-07-14] VITALS: BP 126/83; PULSE 84; RESP 20; TEMP 96.9; O2SAT 96
[2016-07-14 04:00] VITALS: BP 131/73; PULSE 68; RESP 20; TEMP 97.5; O2SAT 97
[2016-07-14] MEDS ORDERED: POVIDONE IODINE 5% (ANTISEPSIS KIT) 4 APPLICATIONS EACH NARE PRN (05:45)
[2016-07-14] MEDS ORDERED: INSULIN HUMAN REGULAR 1,000 UNITS/10 ML VIAL SQ PRN (05:45)
[2016-07-14] MEDS ORDERED: SODIUM CHLORID 0.9% 500 ML IV PRN (05:45)
[2016-07-14] MEDS ORDERED: CHLORHEXIDINE GLUCONATE 2 % 1 PACK (2 CLOTHS) TOPICAL PRN (05:45)
[2016-07-14] MEDS ORDERED: LACTATED RINGER'S 1000 ML IV PRN (05:45)
[2016-07-14] MEDS ORDERED: METOPROLOL TARTRATE 25 MG TAB PO PRN (05:45)
[2016-07-14] MEDS: ceFAZolin 2 GM PREMIX 50 ML IV SCH ×2 (05:54→13:53)
[2016-07-14 07:20] VITALS: BP 126/81; PULSE 73; RESP 18; TEMP 97.3; O2SAT 97
[2016-07-14] MEDS: DOCUSATE SODIUM 100 MG CAP PO SCH ×2 (10:42→21:08)
[2016-07-14] MEDS: SODIUM CHLORIDE 0.9% FLUSH 10 ML FLUSH IV FLUSH SCH ×2 (10:43→21:09)
[2016-07-14 11:53] VITALS: BP 131/88; PULSE 74; RESP 18; TEMP 97.5; O2SAT 96
[2016-07-14] MEDS ORDERED: GENTAMICIN SULFATE 80 MG/2 ML VIAL ONE ×2 (13:21→15:55)
[2016-07-14] MEDS ORDERED: ePHEDrine/NS 25 MG/5 ML SYR IV ONE (14:56)
[2016-07-14] MEDS ORDERED: PROPOFOL 200 MG/20 ML AMP IV ONE (14:56)
[2016-07-14] MEDS ORDERED: ONDANSETRON HCL 4 MG/2 ML VIAL IV PUSH ONE (14:56)
[2016-07-14] MEDS ORDERED: fentaNYL CITRATE 250 MCG/5 ML AMP ONE (15:55)
[2016-07-14] MEDS ORDERED: ceFAZolin INJ 1,000 MG VIAL IV ONE (18:00)
[2016-07-14] MEDS ORDERED: MAGNESIUM HYDROXIDE SUSP 30 ML CUP PO PRN (18:30)
[2016-07-14] MEDS ORDERED: ZOLPIDEM TARTRATE 5 MG TAB PO PRN (18:30)
[2016-07-14] MEDS ORDERED: Post-op Orders (for Pharmacy) MISC XX ONE (18:30)
[2016-07-14] MEDS ORDERED: LACTULOSE SYRUP 20 GM/30 ML CUP PO PRN (18:30)
[2016-07-14] MEDS ORDERED: ONDANSETRON HCL 4 MG/2 ML VIAL IVP PRN (18:30)
[2016-07-14] MEDS ORDERED: SODIUM CHLORIDE 0.9% FLUSH 10 ML FLUSH IV FLUSH PRN (18:30)
[2016-07-14] MEDS ORDERED: BISACODYL 10 MG SUPP RECTAL PRN (18:30)
[2016-07-14] MEDS ORDERED: MORPHINE SULFATE 8 MG/ML INJ IV PUSH PRN (18:30)
[2016-07-14] MEDS ORDERED: oxyCODONE/ACETAMINOPHEN 5 MG/325 MG TAB PO PRN ×2 (18:30)
[2016-07-14] MEDS ORDERED: PROMETHAZINE HCL 25 MG TAB PO PRN (18:30)
[2016-07-14] MEDS ORDERED: SENNOSIDES 8.6 MG TAB PO PRN (18:30)
--- NOTE | 2016-07-14 18:50 | HHI.HP ---
cc: Kevin Chappell Jr., MD [facility] Service Orthopedic Surgeons Primary Care Physician Unknown Admission Diagnosis Diagnoses: (1) Fixation hardware in lower extremity Diagnosis: Principal (2) HTN (hypertension) Chief Complaint: Left distal tibia exposed hardware likely infected Travel History International Travel<30 Days: No Contact w/Intl Traveler <30 Da: No History of Present Illness Mr. Madrigal is a pleasant 76 y/o male with HTN and depression who was previously admitted to [facility] from 02/24/16 to 02/29/16 and is s/p left ankle ORIF as well as left intramedullary casandra fixation by the undersigned on 02/24/16. [facility] without complications. He did well for most of his postoperative period. Pt had issues with cellulitis and poor wound healing in the LLE following discharge. He was being followed by [facility]/ wound care as an outpt. He was recently treated with Bactrim DS as an outpt as well without much improvement. This week he turns significant increase in pain and swelling of the distal tibia as well as extrusion of a distal tibia screw. X-ray examination revealed one of the distal tibial screws had fractured. Pt was admitted to [facility] on 07/13/16 for removal of left tibial hardware. Review of Systems Constitutional: DENIES: Fever, Chills Ears, nose, mouth, throat: COMPLAINS OF: Hearing loss (chronic [place]) Respiratory: DENIES: Cough, Shortness of breath Cardiovascular: DENIES: Chest pain, Dyspnea on Exertion Gastrointestinal: DENIES: Abdominal pain, Nausea, Vomiting Genitourinary: DENIES: Hematuria, Dysuria Musculoskeletal: DENIES: Back pain Integumentary: DENIES: Rash Neurologic: DENIES: Headache Other See HPI PFSH Past Family Social History Past Medical History HTN Depression Past Surgical History ORIF of the left posterior malleolus, I&D of the left tibia and intramedullary casandra fixation left tibial shaft on 02/24/[address] Chappell Reported Medications Nifedical XL 60 Mg PO DAILY Percocet 5-325 mg 1 Tab PO Q4H PRN Citalopram 20 Mg PO DAILY Allergies: Coded Allergies: No Known Allergies (Unverified , 02/24/16) Family History Noncontributory Social History Denies any alcohol, tobacco or illicit drug use Past Family Social History Allergies: Coded Allergies: No Known Allergies (Unverified , 02/24/16) Active Ordered Medications Current Medications Medications (Trade) Dose Ordered Sig/Luis Route Start Time Stop Time Status Last Admin (NS Flush) 2 ml UNSCH PRN IV FLUSH 07/13/16 14:15 (NS Flush) 2 ml BID IV FLUSH 07/13/16 21:00 07/14/16 10:43 ([place] 5-325 Mg) 2 tab Q4H PRN PO 07/13/16 14:15 (Morphine Inj) 5 mg Q2H PRN IV PUSH 07/13/16 14:15 (Zofran Inj) 4 mg Q6H PRN IVP 07/13/16 14:15 (Tylenol) 650 mg Q4H PRN PO 07/13/16 14:15 (Colace) 100 mg BID PO 07/13/16 21:00 07/14/16 10:42 (Milk Of Magnesia Liq) 30 ml Q6H PRN PO 07/13/16 14:15 (Benadryl Inj) 25 mg Q4H PRN IV 07/13/16 14:15 (Benadryl) 25 mg Q4H PRN PO 07/13/16 14:15 (Ambien) 5 mg HS PRN PO 07/13/16 14:15 Naloxone HCl 0.4 mg 0.4 mg UNSCH PRN IV 07/13/16 14:15 Cefazolin Sodium/ Dextrose 50 ml @ 100 mls/hr Q8HR IV 07/13/16 22:00 07/17/16 21:59 07/14/16 13:53 Lactated Ringer's 1,000 ml @ 30 mls/hr Q24H PRN IV 07/14/16 05:45 07/17/16 05:44 (NS 500 ml Inj) 500 ml @ 30 mls/hr [id number] PRN IV 07/14/16 05:45 07/17/16 05:44 Reported Meds & Active Scripts Active Nifedical XL (Nifedipine) 60 Mg Tab 60 Mg PO DAILY Lovenox Inj (Enoxaparin Sodium) 30 Mg/0.3 Ml Syr 30 Mg SQ Q12H 20 Days Percocet (Oxycodone-Acetaminophen) 5-325 mg Tab 1 Tab PO Q4H PRN Reported Citalopram (Citalopram Hydrobromide) 10 Mg Tab 20 Mg PO DAILY Physical Exam Vital Signs Vital Signs Date Time Temp Pulse Resp B/P Pulse Ox O2 Delivery O2 Flow Rate FiO2 07/14/16 11:53 97.5 74 18 131/88 96 07/14/16 07:20 97.3 73 18 126/81 97 07/14/16 04:00 97.5 68 20 131/73 97 07/14/16 00:00 96.9 84 20 126/83 96 07/13/16 20:00 96.8 89 20 176/92 97 Physical Exam Alert awake and oriented x 3. No acute distress. Very hard of hearing. Head: NC/AT Neck: No pain with any range of motion and neck. Pulmonary: Normal respiratory effort. Bilateral upper extremity: No deformities. Grossly neurovascular intact. Intact sensation distally in median, ulnar, and radial nerve. Intact motor in anterior interosseous, posterior interosseous, and ulnar nerve. 2+ radial artery pulses. Good cap refill RIGHT lower extremity: Grossly neurovascularly intact. No deformity. +EHL/FHL, + PT/DP pulses. Supple compartments. Negative Homans sign. LEFT lower extremity: Exposed distal tibial screw. Surrounding erythema circumferentially at the distal tibia. Just proximal to the area there is a small area of fluctuance with some mild surrounding erythema. No instability felt that the fracture site. Nontender at the fracture site. Palpable subcutaneous callus. Neurovascularly intact, +EHL/FHL, + PT/DP pulses. Supple compartments. Negative Homans sign. Assessment & Plan Assessment and Plan 76-year-old male status post left tibia intramedullary casandra fixation in February 2016. Patient subsequently developed cellulitis a few weeks postoperatively. He did well thereafter until 2 weeks ago when he experienced increasing pain and swelling at the distal tibia. Earlier this week he noticed the head of one of the distal screws came out on the skin. X-ray examination revealed one of the distal tibial screws had fractured. After examining the patient in the office, I recommended removal of the hardware with irrigation debridement of the wounds. This patient may likely be infected and will most likely require long-term postoperative antibiotics after removal of hardware. I discussed my treatment plans with the patient, as well as risks, benefits and alternatives of surgical Intervention versus nonoperative treatment. In this case, the risks of operative intervention involves bleeding, infection, risks of damage to neurovascular structures, the risk of needing further surgery and the risks involved with complication from anesthesia. We will proceed with the above procedure. The patient accepts these risks; understands and agrees with my recommendations. I also discussed my proposed postoperative care and follow-up plan. All questions were answered. Kevin Chappell Jr., MD Jul 14, 2016 18:50
[2016-07-14] MEDS ORDERED: DO NOT ADM ANY ANTICOAGULANT DRUGS PRN (18:56)
--- NOTE | 2016-07-14 18:57 | PD.OP ---
cc: Kevin Chappell Jr., MD Operative Report Date of Surgery: Jul 14, 2016 Preoperative Diagnosis: Left distal tibia exposed hardware with open wound Postoperative Diagnosis: Same Procedure: #1 removal of hardware left tibia #2 irrigation debridement left tibia Surgeon: Kevin Chappell Ceramic Tile Installer(s): Staff Resident Surgeon: None Operation and Findings: We then proceeded with removal of the intramedullary nail through an infrapatellar position. We made incision distal to the patella. We carefully dissected down to the patella tendon. The capsule of the knee was entered. The nail entry point was identified and the head of the nail was visualized. The nail extractor tool was inserted and fastened. Under fluoroscopy guidance, the 2 distal and 2 proximal locking screws were removed. The fractured distal screw head was removed. The intramedullary nail was gently back slapped and removed successfully. The remainder of the fractured distal screw came out of the canal with the intramedullary casandra. The fracture appeared completely healed. The fracture was stressed and appeared to be stable under fluoroscopy. There was no instability felt. Multiple tissue samples were taken at each screw sites with a curette. Additional intramedullary samples were also collected and sent The open wound on the medial aspect of the tibia shaft was thoroughly irrigated and debrided. we thoroughly irrigated the incisions including a lavage of the arthrotomy site and the joint. The quadriceps split was closed with a #1 PDS. The remaining incisions were closed with 3-0 PDS then 2-0 nylon at the skin. A well-padded splint was placed to provide further stabilization to the leg. POSTP-OP PLAN OF ACTIVITY Antibiotics: Ancef, vancomycin Antiocoagulation: Lovenox Weight bearing status: NWB Dressing: Change daily, by RN starting postop day 3 Dispo: expected discharge 2 days. Return to senior care facility likely with iv abx from [facility]. Kevin Chappell Jr., MD Jul 14, 2016 18:57
[2016-07-14] MEDS ORDERED: LABETALOL HCL 100 MG/20 ML VIAL ONE (19:09)
[2016-07-14 20:00] VITALS: BP 136/77; PULSE 70; RESP 20; TEMP 97.3; O2SAT 93
[2016-07-14] MEDS: VANCOMYCIN INJ 1,000 MG in SODIUM CHLOR 0.9% 250 ML INJ 250 ML IV SCH (21:08)
[2016-07-14] MEDS: DOCUSATE SODIUM 50 MG/SENNA 8.6 MG TAB PO SCH (21:08)
[2016-07-14] MEDS: KETOROLAC TROMETHAMINE 30 MG/ML (IVP) VIAL IVP SCH (21:09)
--- NOTE | 2016-07-14 22:17 | RADRPT ---
EXAM DATE/TIME: 07/14/2016 20:32 [place] COMPARISON: TIBIA/FIBULA LEFT (AP/LAT), February 24, 2016, 18:10. INDICATIONS : Post op left lower leg hardware removal; evaluate fracture. MEDICAL HISTORY : None. SURGICAL HISTORY : ORIF left tibia. Hardware removal left tibia. ENCOUNTER: Subsequent ACUITY: 1 day PAIN SCORE: 5/10 LOCATION: Left lower leg. FINDINGS: IM casandra hardware has been removed from the right tibia. A screw fragment remains in place adjacent to a distal tibial fracture site notable for healing and prominent callus formation air in healed obliqu e fibular fracture is noted. A partially threaded cortical screw traverses the tibial plafond. CONCLUSION: Left tibial IM casandra removal Stefano Warren MD on July 14, 2016 at 22:12 Board Certified Radiologist. This report was verified electronically.
[2016-07-15] VITALS: BP 130/73; PULSE 86; RESP 20; TEMP 98.2; O2SAT 98
[2016-07-15] MEDS: KETOROLAC TROMETHAMINE 30 MG/ML (IVP) VIAL IVP SCH ×4 (01:16→22:27)
[2016-07-15 04:00] VITALS: BP 113/70; PULSE 87; RESP 20; TEMP 95.6; O2SAT 97
[2016-07-15] MEDS: VANCOMYCIN INJ 1,000 MG in SODIUM CHLOR 0.9% 250 ML INJ 250 ML IV SCH (06:15)
[2016-07-15] MEDS: ENOXAPARIN SODIUM 30 MG/0.3 ML SYRINGE SQ SCH ×2 (06:15→18:36)
[2016-07-15 08:29] VITALS: BP 121/68; PULSE 76; RESP 18; TEMP 96.3; O2SAT 95
[2016-07-15] MEDS: SODIUM CHLORIDE 0.9% FLUSH 10 ML FLUSH IV FLUSH SCH ×2 (09:00→22:28)
[2016-07-15] MEDS: DOCUSATE SODIUM 50 MG/SENNA 8.6 MG TAB PO SCH ×2 (10:05→22:27)
[2016-07-15] MEDS: DOCUSATE SODIUM 100 MG CAP PO SCH ×2 (10:05→22:27)
[2016-07-15 11:26] LABS: AUTOMATED NEUTROPHIL # 8.4 TH/MM3 (1.8-7.7); BASOPHIL # 0.1 TH/MM3 (0-0.2); BASOPHIL % 0.5 % (0.0-2.0); EOSINOPHIL # 0.1 TH/MM3 (0-0.4); EOSINOPHIL % 0.9 % (0.0-4.0); HEMATOCRIT 35.4 % (39.0-51.0); HEMO FLAGS DIFF FINAL; LYMPHOCYTE # 1.5 TH/MM3 (1.0-4.8); MEAN CELL VOLUME 80.5 FL (80.0-100.0); MEAN CORPUSCULAR HEMOGLOBIN 26.4 PG (27.0-34.0); MEAN CORPUSCULAR HGB CONC 32.8 % (32.0-36.0); MONO % 6.6 % (0.0-8.0); PLATELET COUNT 209 TH/MM3 (150-450); RED BLOOD COUNT 4.39 MIL/MM3 (4.50-5.90); RED CELL DISTRIBUTION WIDTH 15.2 % (11.6-17.2); WHITE BLOOD COUNT 10.8 TH/MM3 (4.0-11.0)
[2016-07-15 11:48] LABS: ANION GAP 11 MEQ/L (5-15); AST (GOT) 12 U/L (15-37); BICARBONATE 25.5 MEQ/L (21.0-32.0); BLOOD UREA NITROGEN 26 MG/DL (7-18); CHLORIDE 103 MEQ/L (98-107); GLOMERULAR FILTRATION RATE 35 ML/MIN (>89); POTASSIUM 3.4 MEQ/L (3.5-5.1); SODIUM (NA) 139 MEQ/L (136-145)
[2016-07-15 11:49] LABS: ALT (GPT) 18 U/L (12-78)
[2016-07-15 11:52] LABS: ALKALINE PHOSPHATASE 124 U/L (45-117); TOTAL BILIRUBIN ADULT 0.5 MG/DL (0.2-1.0)
[2016-07-15 12:41] VITALS: BP 102/56; PULSE 88; RESP 18; TEMP 98.2; O2SAT 96
--- NOTE | 2016-07-15 15:27 | PD.ORT.PN ---
Subjective Subjective Remarks No issues. No complaint. Objective Vitals Vital Signs Date Time Temp Pulse Resp B/P Pulse Ox O2 Delivery O2 Flow Rate FiO2 07/15/16 12:41 98.2 88 18 102/56 96 07/15/16 08:29 96.3 76 18 121/68 95 07/15/16 04:00 95.6 87 20 113/70 97 07/15/16 00:00 98.2 86 20 130/73 98 07/14/16 20:00 97.3 70 20 136/77 93 07/14/16 19:30 70 15 141/87 99 Nasal Cannula 3 07/14/16 19:15 88 15 161/96 99 Nasal Cannula 3 07/14/16 19:00 96 15 174/109 99 Nasal Cannula 3 07/14/16 18:52 97.9 88 15 150/83 99 Nasal Cannula 4 I/O 07/14/16 07/14/16 07/14/16 07/15/16 07/15/16 07/15/16 07:00 15:00 23:00 07:00 15:00 23:00 Intake Total 100 ml 1300 ml 403 ml Output Total 100 ml 300 ml Balance 100 ml 1200 ml 103 ml Intake Oral 240 ml IV Total 100 ml 300 ml 163 ml Other 1000 ml Output Urine Total 300 ml Estimated Blood Loss 100 ml # Voids 5 # Bowel Movements 0 0 Result Diagram: 07/15/16 1115 07/15/16 1115 Objective Remarks Alert awake and oriented -3. No acute distress. Severely hard of hearing Pulmonary: Normal respiratory effort. Left lower extremity: Grossly Neurovascularly intact, +EHL/FHL, dressing saturated with dried blood. No active bleeding. + PT/DP pulses. Supple compartments. Negative Homans sign. Right lower extremity: neurovascularly intact Assessment & Plan Assessment and Plan POD #1removal hardware left tibia. Doing well, expected postop pain, no complaints. Preliminary cultures positive for staph aureus Antibiotics: Ancef, vancomycin DVT prophylaxis, Lovenox Weightbearing status: NWB Dressing change: Change daily, by RN starting postop day 2 Dispo: Likely discharged this weekend with IV antibiotics per infectious disease recommendations. Patient is due to return to his assisted living facility. Follow-up: 2 weeks, Dr. Chappell, [facility] Kevin Nichols Jr., MD Jul 15, 2016 15:27
[2016-07-15 15:50] VITALS: BP 118/69; PULSE 86; RESP 18; TEMP 97.9; O2SAT 96
--- NOTE | 2016-07-15 16:17 | PD.CONS ---
History of Present Illness Service Infectious disease Consult Requested By Dr Chappell Reason for Consult Evaluate patient who is status post removal of hardware, suspect infection Primary Care Physician Unknown Diagnoses: History of Present Illness Patient seen and examined. Records reviewed. Patient is not a very good historian. Patient is a 76-year-old male, sustained an open fracture in his left lower extremity after a fall, and this was last February 2016. He underwent ORIF of the left posterior malleolus, IND of the left tibia, and IM casandra fixation of the left tibial shaft. He was discharged to a long-term and did well, but apparently had some problem with wound healing and cellulitis in his left ankle incision. Patient stated that there was a screw sticking out in the last 2 weeks. He was given an antibiotic as an outpatient. He has minimal pain. He didn't know if he had some redness source swelling because he had a cast at one point, and he had a leg brace that he was wearing all the time. Patient was able to ambulate in the long-term. He was brought into the hospital, and underwent removal of the hardware. Cultures from surgery is now reported as growing staph aureus. Patient is afebrile. Infectious disease consultation has been requested to evaluate for suspected infection in his left ankle status post removal of the hardware. Review of Systems Constitutional: DENIES: Fever, Chills, Night Sweats Eyes: DENIES: Eye pain Ears, nose, mouth, throat: COMPLAINS OF: Hearing loss, DENIES: Oral lesions, Throat pain, Ear Pain, Sinus Pain, Toothache Respiratory: DENIES: Cough, Shortness of breath Cardiovascular: DENIES: Chest pain, Palpitations Gastrointestinal: DENIES: Abdominal pain, Diarrhea, Nausea, Vomiting, Difficulty Swallowing Genitourinary: DENIES: Hematuria, Dysuria Musculoskeletal: COMPLAINS OF: Joint pain, Joint Swelling Integumentary: DENIES: Rash Hematologic/lymphatic: DENIES: Lymphadenopathy Immunologic/allergic: DENIES: Urticaria Neurologic: DENIES: Headache Psychiatric: COMPLAINS OF: Depression, DENIES: Hallucinations Past Family Social History Allergies: Coded Allergies: No Known Allergies (Unverified , 02/24/16) Past Medical History HTN Depression Past Surgical History February 2016, #1 open reduction internal fixation left posterior malleolus. #2 irrigation debridement left tibia #3 intramedullary casandra fixation left tibial shaft Active Ordered Medications Tylenol Dulcolax Benadryl Colace Lovenox Toradol Lactulose MOM Morphine MVI Zofran Percocet Phenergan Mirna-Colace Senokot Shelleyien Social History Smoking Alcohol abuse No illicit drugs Physical Exam Vital Signs Vital Signs Date Time Temp Pulse Resp B/P Pulse Ox O2 Delivery O2 Flow Rate FiO2 07/15/16 12:41 98.2 88 18 102/56 96 07/15/16 08:29 96.3 76 18 121/68 95 07/15/16 04:00 95.6 87 20 113/70 97 07/15/16 00:00 98.2 86 20 130/73 98 07/14/16 20:00 97.3 70 20 136/77 93 07/14/16 19:30 70 15 141/87 99 Nasal Cannula 3 07/14/16 19:15 88 15 161/96 99 Nasal Cannula 3 07/14/16 19:00 96 15 174/109 99 Nasal Cannula 3 07/14/16 18:52 97.9 88 15 150/83 99 Nasal Cannula 4 Physical Exam GENERAL: Patient is a well-nourished, well-developed CM, awake and alert, not in respiratory distress. SKIN: Warm and dry. No generalized rash, no ecchymoses and no evidence of embolic lesions. HEAD: Atraumatic. Normocephalic. No temporal wasting, or tenderness. EYES: Ogden conjunctiva. No petechia or hemorrhage. Pupils equal, round and reactive to light. Extraocular movements full and intact. No scleral icterus. No injection or drainage. EARS, NOSE AND THROAT: Nose without bleeding or purulent nasal discharge. No sinus tenderness. Mucous membranes pink and moist. No oral lesions noted. Wears hearing aids major NECK: Trachea midline. Supple and not tender, no meningeal signs CARDIOVASCULAR: Regular rate and rhythm. No murmurs, rubs or gallops heard RESPIRATORY: Clear to auscultation. Breath sounds equal bilaterally. No rales , wheezing or rhonchi ABDOMEN: Soft, non-tender, nondistended. Bowel sounds present and normoactive. No guarding. No rebound. No organomegaly. EXTREMITIES: No clubbing, cyanosis, or edema on RLE. Has NEGRITO bandage on his whole LLE covering foot up to the knee, and he has an immobilizer. No erythema seen in his L thigh. No joint effusion, has good ROM on RLE. No calf tenderness. Well perfused and warm. NEUROLOGICAL: Awake and alert. Cranial nerves grossly intact. Motor grossly within normal limits. PSYCHIATRIC: Normal affect, calm and cooperative. LINE: No evidence of infection Laboratory Laboratory Tests Test 07/15/16 11:15 White Blood Count 10.8 Red Blood Count 4.39 Hemoglobin 11.6 Hematocrit 35.4 Mean Corpuscular Volume 80.5 Mean Corpuscular Hemoglobin 26.4 Mean Corpuscular Hemoglobin 32.8 Concent Red Cell Distribution Width 15.2 Platelet Count 209 Mean Platelet Volume 8.7 Neutrophils (%) (Auto) 78.0 Lymphocytes (%) (Auto) 14.0 Monocytes (%) (Auto) 6.6 Eosinophils (%) (Auto) 0.9 Basophils (%) (Auto) 0.5 Neutrophils # (Auto) 8.4 Lymphocytes # (Auto) 1.5 Monocytes # (Auto) 0.7 Eosinophils # (Auto) 0.1 Basophils # (Auto) 0.1 CBC Comment DIFF FINAL Differential Comment Sodium Level 139 Potassium Level 3.4 Chloride Level 103 Carbon Dioxide Level 25.5 Anion Gap 11 Blood Urea Nitrogen 26 Creatinine 1.90 Estimat Glomerular Filtration 35 Rate Random Glucose 141 Calcium Level 8.0 Total Bilirubin 0.5 Aspartate Amino Transf 12 (AST/SGOT) Alanine Aminotransferase 18 (ALT/SGPT) Alkaline Phosphatase 124 Total Protein 6.7 Albumin 2.7 Date/Time Procedure Status Source Growth 07/14/16 17:35 Gram Stain - Final Resulted Wound Leg 07/14/16 17:35 Wound Culture - Preliminary Resulted Staphylococcus Aureus 07/14/16 17:35 Fungal Smear - Final Resulted Wound Leg NO FUNGAL ELEMENTS SEEN. 07/14/16 17:35 Fungal Culture Resulted Wound Leg Pending 07/14/16 17:35 Acid Fast Stain - Final Resulted Wound Leg NO ACID FAST BACILLI SEEN 07/14/16 17:35 Mycobacterial Culture Resulted Wound Leg Pending Result Diagram: 07/15/16 1115 07/15/16 1115 Imaging RADIOLOGY STUDIES/FILMS REVIEWED Last Impressions Tibia/Fibula X-Ray 07/14/16 0000 Signed Impressions: Service Date/Time: July 20:32 - CONCLUSION: Left tibial IM casandra removal Stefano Warren MD Assessment and Plan Assessment and Plan IMPRESSION Infection L tibia, post open fracture and repair, with infection of hardware and bone, S/P removal - C/S preliminary with Staph aureus Hx Depression and HTN Renal insufficiency RECOMMENDATION UA and C/S Ancef for MSSA Vanco for MRSA Follow C/S and adjust Abx Baseline ESR and CRP Will need Rx for osteo, 6 weeks from date of hardware removal I will follow with you Thank you for this consultation Discussed Condition With D/W Fannie Bar MD Jul 15, 2016 16:17
[2016-07-15] MEDS ORDERED: Vancomycin Consult Pharmacy 1 EA OTHER SCH (16:45)
[2016-07-15] MEDS ORDERED: VANCOMYCIN INJ 2,000 MG in SODIUM CHLORID 0.9% 500 ML INJ 500 ML IV ONE (18:00)
[2016-07-15 20:00] VITALS: BP_SYST 151; BP_SYST 165; BP_DIAS 77; BP_DIAS 81; PULSE 88; RESP 20; TEMP 98.9; O2SAT 96
[2016-07-15] MEDS: MULTIVITAMINS/MINERALS THERAPEUTIC TAB PO SCH (22:27)
[2016-07-16] VITALS (9 sets, daily range): BP systolic 129–182; BP diastolic 74–99; PULSE 68–83; RESP 18–20; TEMP 97–98.8; O2SAT 94–96
[2016-07-16] MEDS: ceFAZolin 2 GM PREMIX 50 ML IV SCH ×3 (00:08→17:25)
[2016-07-16 01:05] LABS: BACTERIA, URINE RARE /hpf; BLOOD, URINE NEG (NEG); COMMENT (UR) CULT NOT INDICATED; CULTURE IF INDICATED CULT NOT INDICATED; GLUCOSE,URINE NEG (NEG); HYALINE CAST, URINE 1 /lpf (RARE); KETONE, URINE NEG (NEG); MUCUS URINE FEW /lpf (OCC); NITRITE,URINE NEG (NEG); PH, URINE 5.5 (5.0-8.5); SQUAMOUS EPITHELIAL CELL URINE <1 /hpf (0-5); URINE COLOR YELLOW (YELLW/STRAW)
[2016-07-16] MEDS: KETOROLAC TROMETHAMINE 30 MG/ML (IVP) VIAL IVP SCH ×3 (02:00→14:02)
[2016-07-16] MEDS: ENOXAPARIN SODIUM 30 MG/0.3 ML SYRINGE SQ SCH ×2 (05:37→17:29)
--- NOTE | 2016-07-16 07:24 | PD.ORT.PN ---
Subjective Subjective Remarks Resting comfortably with no complaints Objective Vitals Vital Signs Date Time Temp Pulse Resp B/P Pulse Ox O2 Delivery O2 Flow Rate FiO2 07/16/16 04:00 97.0 77 20 135/76 96 07/16/16 00:00 98.8 83 20 149/79 96 07/15/16 20:00 98.9 88 20 165/81 96 151/77 07/15/16 15:50 97.9 86 18 118/69 96 07/15/16 12:41 98.2 88 18 102/56 96 07/15/16 08:29 96.3 76 18 121/68 95 I/O 07/15/16 07/15/16 07/15/16 07/16/16 07/16/16 07/16/16 07:00 15:00 23:00 07:00 15:00 23:00 Intake Total 403 ml 960 ml Output Total 300 ml 200 ml Balance 103 ml 960 ml -200 ml Intake Oral 240 ml 960 ml IV Total 163 ml Output Urine Total 300 ml 200 ml # Voids 1 # Bowel Movements 0 1 0 Result Diagram: 07/15/16 1115 07/15/16 1115 Objective Remarks Alert awake and oriented -3. No acute distress. Severely hard of hearing Pulmonary: Normal respiratory effort. Left lower extremity: Grossly Neurovascularly intact, +EHL/FHL, dressing clean dry and intact. No active bleeding. + PT/DP pulses. Supple compartments. Negative Homans sign. Knee immobilizer adjusted Right lower extremity: neurovascularly intact Assessment & Plan Assessment and Plan POD #2removal hardware left tibia. Doing well, expected postop pain, no complaints. Preliminary cultures positive for staph aureus Antibiotics: Ancef, vancomycin DVT prophylaxis, Lovenox Weightbearing status: NWB Dressing change: Change daily, by RN starting postop day 2 Dispo: Likely discharged this weekend with IV antibiotics per infectious disease recommendations. Patient is due to return to his assisted living facility. Follow-up: 2 weeks, Dr. Chappell, [facility] Ramesh Harman Jr. Jul 16, 2016 07:24
[2016-07-16] MEDS: DOCUSATE SODIUM 100 MG CAP PO SCH ×2 (08:12→22:44)
[2016-07-16] MEDS: DOCUSATE SODIUM 50 MG/SENNA 8.6 MG TAB PO SCH ×2 (08:12→22:44)
[2016-07-16] MEDS: MULTIVITAMINS/MINERALS THERAPEUTIC TAB PO SCH ×2 (08:12→22:44)
[2016-07-16] MEDS: SODIUM CHLORIDE 0.9% FLUSH 10 ML FLUSH IV FLUSH SCH ×2 (08:13→22:44)
[2016-07-16 10:13] LABS: AUTOMATED NEUTROPHIL # 6.4 TH/MM3 (1.8-7.7); BASOPHIL % 0.5 % (0.0-2.0); EOSINOPHIL # 0.3 TH/MM3 (0-0.4); EOSINOPHIL % 3.3 % (0.0-4.0); HEMATOCRIT 32.7 % (39.0-51.0); HEMO FLAGS DIFF FINAL; LYMPH % 20.6 % (9.0-44.0); LYMPHOCYTE # 1.9 TH/MM3 (1.0-4.8); MEAN CELL VOLUME 81.3 FL (80.0-100.0); MEAN CORPUSCULAR HEMOGLOBIN 26.3 PG (27.0-34.0); MEAN CORPUSCULAR HGB CONC 32.3 % (32.0-36.0); MONO % 7.1 % (0.0-8.0); NEUT % 68.5 % (16.0-70.0); PLATELET COUNT 190 TH/MM3 (150-450); RED BLOOD COUNT 4.02 MIL/MM3 (4.50-5.90); RED CELL DISTRIBUTION WIDTH 14.8 % (11.6-17.2); WHITE BLOOD COUNT 9.3 TH/MM3 (4.0-11.0)
[2016-07-16 10:30] LABS: BICARBONATE 26.6 MEQ/L (21.0-32.0); MAGNESIUM 2.4 MG/DL (1.5-2.5); POTASSIUM 3.3 MEQ/L (3.5-5.1)
[2016-07-16] MEDS ORDERED: VANCOMYCIN INJ 1,750 MG in SODIUM CHLORID 0.9% 500 ML INJ 500 ML IV SCH (18:00)
[2016-07-16] MEDS ORDERED: cloNIDine HCL 0.1 MG TAB PO ONE (23:15)
[2016-07-17] VITALS (8 sets, daily range): BP systolic 123–180; BP diastolic 67–92; PULSE 70–85; RESP 18–20; TEMP 96.9–98.1; O2SAT 94–97
[2016-07-17] MEDS: ceFAZolin 2 GM PREMIX 50 ML IV SCH ×3 (01:10→16:52)
[2016-07-17] MEDS: ENOXAPARIN SODIUM 30 MG/0.3 ML SYRINGE SQ SCH ×2 (06:18→16:52)
[2016-07-17 07:54] LABS: AUTOMATED NEUTROPHIL # 5.8 TH/MM3 (1.8-7.7); BASOPHIL # 0.1 TH/MM3 (0-0.2); BASOPHIL % 0.6 % (0.0-2.0); EOSINOPHIL # 0.4 TH/MM3 (0-0.4); EOSINOPHIL % 4.5 % (0.0-4.0); HEMATOCRIT 32.2 % (39.0-51.0); HEMO FLAGS DIFF FINAL; LYMPH % 24.2 % (9.0-44.0); LYMPHOCYTE # 2.2 TH/MM3 (1.0-4.8); MEAN CELL VOLUME 81.2 FL (80.0-100.0); MEAN CORPUSCULAR HEMOGLOBIN 26.1 PG (27.0-34.0); MEAN CORPUSCULAR HGB CONC 32.1 % (32.0-36.0); MONO % 6.5 % (0.0-8.0); NEUT % 64.2 % (16.0-70.0); PLATELET COUNT 214 TH/MM3 (150-450); RED BLOOD COUNT 3.96 MIL/MM3 (4.50-5.90); RED CELL DISTRIBUTION WIDTH 15.1 % (11.6-17.2)
[2016-07-17 08:17] LABS: BICARBONATE 31.1 MEQ/L (21.0-32.0); MAGNESIUM 2.3 MG/DL (1.5-2.5); POTASSIUM 3.3 MEQ/L (3.5-5.1)
[2016-07-17] MEDS: SODIUM CHLORIDE 0.9% FLUSH 10 ML FLUSH IV FLUSH SCH ×2 (09:00→21:00)
[2016-07-17] MEDS: DOCUSATE SODIUM 100 MG CAP PO SCH ×2 (09:50→21:00)
[2016-07-17] MEDS: MULTIVITAMINS/MINERALS THERAPEUTIC TAB PO SCH ×2 (09:50→21:00)
[2016-07-17] MEDS: DOCUSATE SODIUM 50 MG/SENNA 8.6 MG TAB PO SCH ×2 (09:50→21:00)
--- NOTE | 2016-07-17 12:23 | PD.ORT.PN ---
Subjective Subjective Remarks Resting comfortably with no complaints Objective Vitals Vital Signs Date Time Temp Pulse Resp B/P Pulse Ox O2 Delivery O2 Flow Rate FiO2 07/17/16 11:57 96.9 71 20 126/67 95 07/17/16 07:58 97.9 70 20 123/77 95 07/17/16 04:00 98.1 78 20 156/81 96 07/17/16 01:13 97.8 72 18 149/72 97 07/17/16 00:06 98.0 71 20 180/88 94 07/16/16 22:53 97.3 72 18 176/93 94 07/16/16 21:30 97.5 73 18 169/81 96 07/16/16 20:15 97.2 73 18 170/99 96 07/16/16 20:05 97.6 79 18 182/88 96 07/16/16 16:35 97.4 72 18 155/89 94 I/O 07/16/16 07/16/16 07/16/16 07/17/16 07/17/16 07/17/16 07:00 15:00 23:00 07:00 15:00 23:00 Intake Total 550 ml 480 ml Output Total 200 ml 1050 ml 300 ml Balance -200 ml 550 ml -570 ml -300 ml Intake Oral 480 ml IV Total 550 ml Output Urine Total 200 ml 1050 ml 300 ml # Voids 1 # Bowel Movements 0 0 1 Result Diagram: 07/17/1672107/17/16721 Objective Remarks Alert awake and oriented -3. No acute distress. Severely hard of hearing Pulmonary: Normal respiratory effort. Left lower extremity: Grossly Neurovascularly intact, +EHL/FHL, dressing clean dry and intact. No active bleeding. + PT/DP pulses. Supple compartments. Negative Homans sign. Knee immobilizer adjusted Right lower extremity: neurovascularly intact Assessment & Plan Assessment and Plan POD #3removal hardware left tibia. Doing well, expected postop pain, no complaints. Preliminary cultures positive for staph aureus Antibiotics: Ancef, vancomycin DVT prophylaxis, Lovenox Weightbearing status: NWB Dressing change: Change daily, by RN starting postop day 2 Dispo: Likely discharged this weekend with IV antibiotics per infectious disease recommendations. Patient is due to return to his assisted living facility. Follow-up: 2 weeks, Dr. Chappell, [facility] R[facility] Har[facility] Jr. Jul 17, 2016 12:23
[2016-07-17] MEDS: VANCOMYCIN INJ 1,750 MG in SODIUM CHLORID 0.9% 500 ML INJ 500 ML IV SCH (14:00)
[2016-07-17] MEDS ORDERED: POTASSIUM CHLORIDE 20 MEQ CONTROLLED RELEASE TAB PO ONE (15:30)
[2016-07-18] VITALS (7 sets, daily range): BP systolic 114–177; BP diastolic 54–90; PULSE 63–79; RESP 18–20; TEMP 96.2–98.7; O2SAT 94–97
[2016-07-18] MEDS: ceFAZolin 2 GM PREMIX 50 ML IV SCH ×2 (01:50→10:16)
[2016-07-18] MEDS: ENOXAPARIN SODIUM 30 MG/0.3 ML SYRINGE SQ SCH ×2 (05:35→18:19)
[2016-07-18] MEDS: SODIUM CHLORIDE 0.9% FLUSH 10 ML FLUSH IV FLUSH SCH ×2 (08:18→22:53)
[2016-07-18] MEDS: VANCOMYCIN INJ 1,750 MG in SODIUM CHLORID 0.9% 500 ML INJ 500 ML IV SCH (08:18)
[2016-07-18] MEDS: MULTIVITAMINS/MINERALS THERAPEUTIC TAB PO SCH ×2 (08:19→22:53)
[2016-07-18] MEDS: DOCUSATE SODIUM 50 MG/SENNA 8.6 MG TAB PO SCH ×2 (08:19→21:00)
[2016-07-18] MEDS: DOCUSATE SODIUM 100 MG CAP PO SCH ×2 (08:19→21:00)
--- NOTE | 2016-07-18 11:51 | RADRPT ---
EXAM DATE/TIME: 07/18/2016 10:20 [facility] COMPARISON: TIBIA/FIBULA LEFT (AP/LAT), February 24, 2016, 10:10. TIBIA/FIBULA LEFT (AP/LAT), February 24, 2016, 1 8:10. TIBIA/FIBULA LEFT (AP/LAT), July 14, 2016, 20:32. INDICATIONS : Post op left tibia hardware removal. MEDICAL HISTORY : None. SURGICAL HISTORY : ORIF tibia, left. Hardware removal tibia, left. ENCOUNTER: Subsequent ACUITY: 4 - 6 days PAIN SCORE: Non-responsive. LOCATION: Left tib/fib FINDINGS: Examination is stable from 2016. Again, there has been interval removal of IM casandra hardware from th e left tibia. Screw fragment is noted near the distal tibial fracture site. There is exuberant callus formation and periosteal reaction involving the distal tibial fract and fibular fractures. No interc urrent acute bony fracture is identified. There is a stable partially threaded screw traversing the t ibial plafond. Visualized talar dome appears grossly intact. Remainder of exam is unchanged. CONCLUSION: 1. Status post removal of left tibial IM casandra hardware, as above. 2. No intercurrent acute fracture. Manuel Griggs MD on July 18, 2016 at 11:35 Board Certified Radiologist. This report was verified electronically.
--- NOTE | 2016-07-18 12:59 | HHI.IDPN ---
Subjective Subjective Remarks Notes reviewed C/S with MSSA Not a lot of pain No other complaints Antibiotics Ancef Vancomycin Lines PIV Past Medical History HTN Depression Past Surgical History February 2016, #1 open reduction internal fixation left posterior malleolus. #2 irrigation debridement left tibia #3 intramedullary casandra fixation left tibial shaft Allergies: Coded Allergies: No Known Allergies (Unverified , 02/24/16) Objective . Vital Signs Date Time Temp Pulse Resp B/P Pulse Ox O2 Delivery O2 Flow Rate FiO2 07/18/16 12:34 97.4 72 18 114/54 95 07/18/16 08:22 97.6 67 18 143/75 96 07/18/16 04:00 96.2 63 20 155/72 94 07/18/16 02:21 67 19 157/80 94 07/18/16 00:00 98.1 79 20 177/83 94 07/17/16 22:28 75 19 177/83 97 07/17/16 20:22 97.8 74 20 167/79 97 07/17/16 16:00 97.3 85 20 166/92 96 07/17/16 07/17/16 07/18/16 15:00 23:00 07:00 Intake Total 620 ml 489 ml 370 ml Output Total 200 ml 301 ml 500 ml Balance 420 ml 188 ml -130 ml Intake Oral 620 ml 250 ml IV Total 489 ml 120 ml Output Urine Total 200 ml 300 ml 500 ml Stool Total 1 ml # Voids 2 # Bowel Movements 3 . Laboratory Tests Test 07/17/16 07:22 White Blood Count 9.0 TH/MM3 Red Blood Count 3.96 MIL/MM3 Hemoglobin 10.3 GM/DL Hematocrit 32.2 % Mean Corpuscular Volume 81.2 FL Mean Corpuscular Hemoglobin 26.1 PG Mean Corpuscular Hemoglobin 32.1 % Concent Red Cell Distribution Width 15.1 % Platelet Count 214 TH/MM3 Mean Platelet Volume 9.1 FL Neutrophils (%) (Auto) 64.2 % Lymphocytes (%) (Auto) 24.2 % Monocytes (%) (Auto) 6.5 % Eosinophils (%) (Auto) 4.5 % Basophils (%) (Auto) 0.6 % Neutrophils # (Auto) 5.8 TH/MM3 Lymphocytes # (Auto) 2.2 TH/MM3 Monocytes # (Auto) 0.6 TH/MM3 Eosinophils # (Auto) 0.4 TH/MM3 Basophils # (Auto) 0.1 TH/MM3 CBC Comment DIFF FINAL Differential Comment Laboratory Tests Test 07/17/16 07:22 Sodium Level 145 MEQ/L Potassium Level 3.3 MEQ/L Chloride Level 109 MEQ/L Carbon Dioxide Level 31.1 MEQ/L Anion Gap 5 MEQ/L Blood Urea Nitrogen 17 MG/DL Creatinine 1.10 MG/DL Estimat Glomerular Filtration 65 ML/MIN Rate Random Glucose 90 MG/DL Calcium Level 8.4 MG/DL Magnesium Level 2.3 MG/DL Imaging Tibia/Fibula X-Ray 07/18/16 0000 Signed Impressions: Service Date/Time: Monday, July 18, 2016 10:20 - CONCLUSION: 1. Status post removal of left tibial IM casandra hardware, as above. 2. No intercurrent acute fracture. Manuel Griggs MD Physical Exam GENERAL: awake and alert, not in respiratory distress. SKIN: Warm and dry. No generalized rash HEAD: Atraumatic. Normocephalic. No temporal wasting, or tenderness. EYES: Sims conjunctiva. No petechia or hemorrhage. Pupils equal, round and reactive to light. No scleral icterus. No injection or drainage. EARS, NOSE AND THROAT: Nose without bleeding or purulent nasal discharge. No sinus tenderness. Mucous membranes pink and moist. No oral lesions noted. Wears hearing aids major NECK: Trachea midline. Supple and not tender, no meningeal signs CARDIOVASCULAR: Regular rate and rhythm. No murmurs, rubs or gallops heard RESPIRATORY: Clear to auscultation. Breath sounds equal bilaterally. No rales , wheezing or rhonchi ABDOMEN: Soft, non-tender, nondistended. Bowel sounds present and normoactive. No guarding. No rebound. No organomegaly. EXTREMITIES: No clubbing, cyanosis, or edema on RLE. Has NEGRITO bandage on his whole LLE covering foot up to the knee, and he has an immobilizer. No erythema seen in his L thigh. No joint effusion, has good ROM on RLE. No calf tenderness. Well perfused and warm. NEUROLOGICAL: Awake and alert. Cranial nerves grossly intact. Motor grossly within normal limits. PSYCHIATRIC: Normal affect, calm and cooperative. LINE: No evidence of infection Assessment & Plan Remarks IMPRESSION Infection L tibia, post open fracture and repair, with infection of hardware and bone, S/P removal - C/S MSSA Hx Depression and HTN Renal insufficiency RECOMMENDATION PICC Change to Rocephin Will arrange for home IV Abx Consult CM to arrange for Abx Will need Rx for osteo, 6 weeks from date of hardware removal Fannie Cuadra MD Jul 18, 2016 12:59
[2016-07-18] MEDS ORDERED: SODIUM CHLORIDE 0.9% FLUSH 10 ML FLUSH IV FLUSH PRN (15:00)
[2016-07-18] MEDS: cefTRIAXone INJ 2,000 MG in SODIUM CHLORIDE 0.9% INJ 100 ML IV SCH (15:14)
--- NOTE | 2016-07-18 16:31 | HHI.DS ---
Discharge Summary Admission Date Jul 13, 2016 at 13:10 Discharge Date: Jul 19, 2016 Admitting Diagnosis Left infected tibia Diagnosis: (1) Fixation hardware in lower extremity (2) Infection associated with internal fixation device of left tibia Diagnosis: Principal Brief History This is a 76 year old male patient CBC/BMP: 07/17/16 0722 07/17/16 0722 Significant Findings Laboratory Tests Test 07/16/16 07/16/16 07/17/16 00:30 09:08 07:22 Urine Protein 30 mg/dL (NEG-TRACE) Urine Bacteria RARE /hpf (NONE) Urine Mucus FEW /lpf (OCC) Red Blood Count 4.02 MIL/MM3 3.96 MIL/MM3 (4.50-5.90) (4.50-5.90) Hemoglobin 10.6 GM/DL 10.3 GM/DL (13.0-17.0) (13.0-17.0) Hematocrit 32.7 % 32.2 % (39.0-51.0) (39.0-51.0) Mean Corpuscular Hemoglobin 26.3 PG 26.1 PG (27.0-34.0) (27.0-34.0) Erythrocyte Sedimentation Rate 51 mm/hr (0-20) Potassium Level 3.3 MEQ/L 3.3 MEQ/L (3.5-5.1) (3.5-5.1) Blood Urea Nitrogen 23 MG/DL (7-18) Creatinine 1.35 MG/DL (0.60-1.30) Estimat Glomerular Filtration 51 ML/MIN (>89) 65 ML/MIN (>89) Rate Random Glucose 134 MG/DL (74-106) Calcium Level 8.0 MG/DL 8.4 MG/DL (8.5-10.1) (8.5-10.1) C-Reactive Protein 8.60 MG/DL (0.00-0.30) Eosinophils (%) (Auto) 4.5 % (0.0-4.0) Chloride Level 109 MEQ/L (98-107) PE at Discharge Alert awake and oriented -3. No acute distress. Severely hard of hearing Pulmonary: Normal respiratory effort. Left lower extremity: Grossly Neurovascularly intact, +EHL/FHL, dressing clean dry and intact. No active bleeding. + PT/DP pulses. Supple compartments. Negative Homans sign. Knee immobilizer adjusted Right lower extremity: neurovascularly intact Hospital Course The patient was taken to the operating room by the undersigned for the above procedures which he tolerated well. He was extubated then transferred to PACU in stable condition. The patient was subsequently transferred to the floor. The rest of his hospital stay was uneventful. he received adequate postoperative antibiotics. He was seen by infectious disease and will be discharged with IV antibiotics based on results of intraoperative cultures. His diet was advanced as tolerated and he had full return of bowel function as well as making adequate urine output. We were able to covert IV pain meds to po pain meds. The patient received adequate physical therapy during his stay in is being discharged with detailed physical therapy recommendations. The patient was seen and examined on the day of discharge and found to be in stable condition. On Exam at discharge: Operative extremity was neurovascularly intact with splint that was clean, dry and intact. Follow-up 10-[address] Chappell @ [facility]opaedic clinic with a [facility]. Pt Condition on Discharge: Good Discharge Disposition: Discharge to SNF Discharge Instructions Diet Instructions: As Tolerated, No Restrictions Activities You Can Perform: Non Weight Bearing Activities to Avoid: Driving for 24 hrs Kevin Chappell Jr., MD Jul 18, 2016 16:31
--- NOTE | 2016-07-18 16:53 | RADRPT ---
EXAM DATE/TIME: 07/18/2016 14:22 [facility] COMPARISON: CHEST SINGLE AP, February 24, 2016, 10:05. INDICATIONS : Post picc line placement. MEDICAL HISTORY : Cardiovascular disease. Hypertension SURGICAL HISTORY : None. ENCOUNTER: Initial ACUITY: 4 - 6 days PAIN SCORE: 0/10 LOCATION: Bilateral chest FINDINGS: Right-sided PICC line tip in the central SVC approximately 2 cm above the atriocaval junction. Lungs are clear. Cardiac selected remains enlarged. Remainder of the exam is unchanged. CONCLUSION: 1. Right PICC line tip in the central SVC approximately 2 cm above the atriocaval junction. Manuel Griggs MD on July 18, 2016 at 16:47 Board Certified Radiologist. This report was verified electronically.
[2016-07-19 00:14] VITALS: BP 176/85; PULSE 70; RESP 20; TEMP 97.5; O2SAT 96
[2016-07-19] MEDS: cloNIDine HCL 0.1 MG TAB PO PRN ×2 (01:44→08:20)
[2016-07-19] MEDS ORDERED: PHARMACY ORDERED LAB ONE (01:45)
[2016-07-19 04:48] VITALS: BP 142/68; PULSE 63; RESP 20; TEMP 96.3; O2SAT 94
[2016-07-19] MEDS: ENOXAPARIN SODIUM 30 MG/0.3 ML SYRINGE SQ SCH ×2 (05:54→17:40)
[2016-07-19 07:35] VITALS: BP 162/96; PULSE 73; RESP 18; TEMP 97.2; O2SAT 96
[2016-07-19] MEDS: SODIUM CHLORIDE 0.9% FLUSH 10 ML FLUSH IV FLUSH SCH (08:08)
[2016-07-19] MEDS: MULTIVITAMINS/MINERALS THERAPEUTIC TAB PO SCH (08:08)
[2016-07-19] MEDS: DOCUSATE SODIUM 100 MG CAP PO SCH (08:08)
[2016-07-19] MEDS: DOCUSATE SODIUM 50 MG/SENNA 8.6 MG TAB PO SCH (08:09)
[2016-07-19] MEDS ORDERED: SODIUM CHLORIDE 0.9% FLUSH 10 ML FLUSH IV FLUSH SCH (09:00)
--- NOTE | 2016-07-19 09:03 | HHI.FF ---
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 [] May leave port accessed during therapy. [] May leave peripheral site accessed for duration of therapy. [x] If patient has SOB or respiratory distress, check oxygen saturation. If less than 90% or clinical signs of respiratory distress, administer oxygen at 2 L/min. via nasal cannula and notify physician. [x] Anaphylaxis/Reaction orders: * Stop infusion. * Keep IV line open with saline flush. * Notify physician. * Monitor vital signs every 15 minutes until symptoms resolve. * Check Oxygen saturation; Oxygen at 2 L/min. via nasal cannula if less than 90% or clinical signs of respiratory distress. * Administer diphenhydramine (Benadryl) 25 mg IV STAT, (unless patient has received as pre-med). May repeat once, if necessary. * Solu-Cortef 250 mg IVP over 30-60 seconds, use 100 mg vials for each dissolution. * Epinephrine (1mg/1 ml) 0.3 mg subcutaneously or IVP now with any signs of respiratory distress. * Check with physician for new additional pre-med orders if patient is re- challenged or re-treated. [x] May remove PICC line when treatment complete, after confirming with Physician. [x] If the patient is admitted to the hospital, the ED, or transferred via [facility] , complete transfer form including medication reconciliation order sheet. Laboratory Tests Weekly Labs: CBC w/diff, Creatinine, LFT's (Hepatic function test) (labs every eday, copy to me, please call if abnormal) Fannie Cuadra MD Jul 19, 2016 09:03
[2016-07-19] MEDS ORDERED: EPIN1INJ21 SQ (09:05)
[2016-07-19] MEDS ORDERED: SOLU250I IV PUSH (09:05)
[2016-07-19] MEDS ORDERED: EPIN1INJ21 IV PUSH (09:05)
[2016-07-19] MEDS ORDERED: CEFT2INJ IM (09:05)
--- NOTE | 2016-07-19 10:25 | PD.ORT.PN ---
Subjective Subjective Remarks No issues. No complaint. Objective Vitals Vital Signs Date Time Temp Pulse Resp B/P Pulse Ox O2 Delivery O2 Flow Rate FiO2 07/19/16 07:35 97.2 73 18 162/96 96 07/19/16 04:48 96.3 63 20 142/68 94 07/19/16 00:14 97.5 70 20 176/85 96 07/18/16 20:15 98.7 75 20 147/76 94 07/18/16 16:30 97.4 78 18 145/90 97 07/18/16 12:34 97.4 72 18 114/54 95 I/O 07/18/16 07/18/16 07/18/16 07/19/16 07/19/16 07/19/16 07:00 15:00 23:00 07:00 15:00 23:00 Intake Total 370 ml 960 ml 5 ml Output Total 500 ml 300 ml 375 ml Balance -130 ml 960 ml -300 ml -370 ml Intake Oral 250 ml 960 ml IV Total 120 ml 5 ml Output Urine Total 500 ml 300 ml 375 ml Result Diagram: 07/17/1672107/17/16721 Objective Remarks Alert awake and oriented -3. No acute distress. Severely hard of hearing Pulmonary: Normal respiratory effort. Left lower extremity: Grossly Neurovascularly intact, +EHL/FHL, dressing clean dry and intact. + PT/DP pulses. Supple compartments. Negative Homans sign. Right lower extremity: neurovascularly intact Assessment & Plan Problem List: (1) Fixation hardware in lower extremity (2) Infection associated with internal fixation device of left tibia Assessment and Plan POD #5removal hardware left tibia. Doing well, expected postop pain, no complaints. DC CKS Cultures positive for staph aureus Antibiotics: per ID DVT prophylaxis, Lovenox Weightbearing status: NWB Dressing change: Change daily, by RN Dispo: ok to dc today with iv abx. picc line in place. Patient is due to return to his assisted living facility. Follow-up: 2 weeks, Dr. Chappell, [facility] Kevin Nichols Jr., MD Jul 19, 2016 10:25
[2016-07-19 11:40] VITALS: BP 129/77; PULSE 58; RESP 18; TEMP 96; O2SAT 96
[2016-07-19] MEDS: cefTRIAXone INJ 2,000 MG in SODIUM CHLORIDE 0.9% INJ 100 ML IV SCH (13:21)
[2016-07-19] MEDS ORDERED: DIPH25CA PO (16:05)
[2016-07-19 16:08] VITALS: BP 147/84; PULSE 65; RESP 18; TEMP 95.4; O2SAT 95
== END 2016-07-19 17:30 | DRG 857 ==
LOC: N05B 13:10
PROVIDERS: ADMIT Orthopaedic Surgery; ATTEND Orthopaedic Surgery
PROC: 0HDLXZZ Extraction of Left Lower Leg Skin, External Approach (ICD-10-PCS; 2016-07-14)
PROC: 0QPH04Z Removal of Internal Fixation Device from Left Tibia, Open Approach (ICD-10-PCS; principal; 2016-07-14 16:02)
DX: T81.4XXA Infection following a procedure, initial encounter (principal); T84.117A Breakdown (mechanical) of internal fixation device of bone of left lower leg, initial encounter; B95.61 Methicillin susceptible Staphylococcus aureus infection as the cause of diseases classified elsewhere; I10 Essential (primary) hypertension; F32.9 Major depressive disorder, single episode, unspecified; N28.9 Disorder of kidney and ureter, unspecified
CPT/HCPCS: 36569; 71010; 73590; 76000; 76937; 80048; 80053; 81001; 83735; 85025; 85652; 86140; 86403; 87015; 87070; 87102; 87116; 87147; 87176; 87186; 87205; 87206; 88112; 88305; 94150; J0690; J0696; J1580; J1642; J1650; J1885; J2405; J3010; J3370; J7040; J7050; L1830